=== PATIENT | male | born 1940 | race Caucasian/White ===

== ENCOUNTER 2024-10-19 10:21 | Inpatient (IN) ==
--- NOTE | 2024-10-19 10:48 | Emergency Department Note ---
Impression & Plan Delirium, Mastoiditis of both sides, Leukocytosis ED Provider Note CHIEF COMPLAINT: Altered mental status HISTORY OF PRESENT ILLNESS: This 84-year-old male patient past medical history of L1 compression fracture, dyslipidemia, constipation presents to the emergency department with complaints of decreased mental status and "unresponsive." Pt has been intermittently agitated and restless over the last wekk per his sister. He has been treated with oxy for back pain until ~5 days ago. residential staff told EMS he was noted to be obtunded when the tried to get him OOB today. No noted falls. REVIEW OF SYSTEMS: A review of systems was performed with positives and pertinent negatives listed in the history of present illness. 10 systems were reviewed and are otherwise negative. ALLERGIES: see below MEDICATIONS: see below PMH: see below SOCIAL HISTORY: see below DDx: infection, PNA, metabolic abnl, medication effect, dehydration, ICH, ICM, seizure among others. PHYSICAL EXAM: Vital signs reviewed. General: elderly 84 yo male, in no significant distress. HEENT: No scleral icterus, PERRLA, neck supple. MMM. on n/c O2 Cardiovascular: Regular rate and rhythm, no extra sounds. Pulmonary: Clear to auscultation bilaterally, normal work of breathing. Abdomen: Soft, nontender, nondistended, positive bowel sounds. Musculoskeletal: Atraumatic, no peripheral edema. Neurologic: Patient somnolent, difficult to arouse. blinks in response to threat, but minimally. nonverbal to painful stimuli, unable to follow commands. Skin: Warm, dry, no rash EMERGENCY DEPARTMENT COURSE/MDM: This pt was evaluated and appeared to be in no distress. IV access was obtained and lab work was drawn. Pt was placed on the machine fur cleaner and noted to be in a NSR. CXR reveals some congestive change and likely effusion L lung base. Pt had no significant response to IV narcan. Head CT is significant for possible mastoiditis. Lab work reveals a leukocytosis. Viral panel is negative. UA is sig only for blood. blood cx were ordered, IV cefepime and IV NSS were administered. Pt was discussed with IR for lumbar puncture. Hospitalist was consulted for admission and further management. MONITORING: An order for cardiac monitoring was placed and the patient is noted to be in a NSR at 75 beats per minute. RADIOLOGY: CXR to my interpretation reveals mild congestive changes with likely effusion at L lung base. Head Ct per rads: IMPRESSION: 1. No acute intracranial findings. 2. Findings consistent with bilateral mastoiditis. EKG: to my interpretation reveals a NSR at 77 bpm, RBBB with repolarization abnl, QTc 466. normal ST segments. no PVC, no PAC. DISPOSITION:Admit Past Med/Surg History Problem List (Updated 10/25/24 @ 09:40 by [place] Sánchez MD) Leukocytosis (Acute) Mastoiditis of both sides (Acute) Delirium (Acute) Palliative care by specialist Stenosis of right internal carotid artery COPD (chronic obstructive pulmonary disease) Glaucoma Dyslipidemia Social History Smoking Status: Former smoker Tobacco Type: Cigarettes Hx Alcohol Use: No Hx Substance Use: No Preferred Language: Chadian Communication Ability: Effective Alarm Installer Required: No Beliefs That Will Affect Care: U[place]din Current Living Situation: Residential Feels Safe at Home: Yes Assistive Devices: Oxygen - Continuous and Walker Allergies Allergies Allergy/AdvReac Type Severity Reaction Status Date / Time No Known Allergies Allergy Unverified 10/10/24 10:20 Home Meds Home Medications Medication Instructions Recorded Confirmed arformoterol 15 mcg/2 mL solution 2 ml inhalation BID 10/10/24 10/19/24 for nebulization aspirin 81 mg chewable tablet 81 mg PO QAM 10/10/24 10/19/24 bisacodyl 10 mg rectal suppository 10 mg KS DAILY PRN Constipation 10/10/24 10/19/24 (Dulcolax (bisacodyl)) cyanocobalamin (vitamin B-12) 1,000 mcg PO QAM 10/10/24 10/19/24 1,000 mcg tablet ipratropium 0.5 mg-albuterol 3 mg 3 ml inhalation Q2H PRN 10/10/24 10/19/24 (2.5 mg base)/3 mL nebulization SOB/Wheezing soln ondansetron 4 mg disintegrating 4 mg PO Q6H PRN Nausea And Vomiting 10/10/24 10/19/24 tablet polyethylene glycol 3350 17 gram 17 g PO QAM 10/10/24 10/19/24 oral powder packet (Miralax) revefenacin 175 mcg/3 mL solution 175 mcg inhalation QAM 10/10/24 10/19/24 for nebulization Milk of Magnesia 30 ml PO DAILY PRN Constipation 10/19/24 10/19/24 atorvastatin 80 mg tablet 80 mg PO HS 10/19/24 10/19/24 calcium carbonate 500 mg PO Q6H PRN GERD 10/19/24 10/19/24 cholecalciferol (vitamin D3) 50 50 mcg PO QAM 10/19/24 10/19/24 mcg (2,000 unit) tablet latanoprost 0.005 % eye drops 1 drp ophthalmic (eye) PM 10/19/24 10/19/24 saliva stimulant comb. no.3 1 spray mucous membrane Q2H PRN 10/19/24 10/19/24 (Biotene Moisturizing Mouth Dry Mouth mucosal spray) sodium phosphates 19 gram-7 118 ml KS DAILY PRN Constipation 10/19/24 10/19/24 gram/118 mL enema (Fleet Enema) tamsulosin 0.4 mg capsule 0.4 mg PO HS 10/19/24 10/19/24 Previous Rx's Medication Instructions Recorded acetaminophen 500 mg tablet 1,000 mg (2 x 500 mg) PO TID PRN 10/23/24 (Tylenol Extra Strength) pain #1 tab aripiprazole 2 mg tablet 2 mg PO QPM #1 tab 10/23/24 budesonide 0.5 mg/2 mL suspension 0.5 mg (2 mL) NEB BIDR #1 mL 10/23/24 for nebulization furosemide 40 mg tablet 20 mg (1/2 x 40 mg) PO DAILY #0 10/23/24 tabs lidocaine 5 % topical patch 1 patch transdermal HS #1 ea 10/23/24 potassium chloride 20 mEq 20 meq PO DAILY #0 tabs 10/23/24 tablet,extended release(part/cryst) sennosides 8.6 mg tablet (Senokot) 17.2 mg (2 x 8.6 mg) PO HS #1 tab 10/23/24 Results & Data (ED) Vital Signs Vital Signs - 24 hr 10/19/24 10:40 Pulse Rate 82 Home Medications Current Medication List: was personally reviewed by me Laboratory Data Attestation: I reviewed the patient's lab results. 10/21/24 07:49 10/21/24 07:49 Lab Results 10/19/24 10/19/24 10/19/24 Range/Units 10:48 11:38 13:25 WBC 11.71 H (4.8-10.8) K/ul RBC 4.60 L (4.70-6.10) M/uL Hgb 14.8 (14.0-18.0) g/dl Hct 46.5 (42.0-52.0) % MCV 101.1 H (80.0-100.0) fL MCH 32.2 (25.0-34.0) pg MCHC 31.8 L (32.0-36.0) g/dL RDW Std Deviation 51.5 H (36.4-46.3) fL RDW Coeff of Marcia 13.6 (11.5-14.5) % Plt Count 247 (130-400) K/uL MPV 10.3 (9.4-12.4) fL Immature Gran % (Auto) 0.3 % Neut % (Auto) 60.2 % Lymph % (Auto) 25.2 % [place] % (Auto) 10.2 % Eos % (Auto) 3.6 % Baso % (Auto) 0.5 % Neut # (Auto) 7.05 H (1.40-6.50) K/uL Lymph # (Auto) 2.95 (1.20-3.40) K/uL [place] # (Auto) 1.19 H (0.11-0.59) K/uL Eos # (Auto) 0.42 (0.00-0.50) K/uL Baso # (Auto) 0.06 (0.00-0.20) K/uL Immature Gran # (Auto) 0.04 (0.01-0.20) K/uL Sodium 141 (136-145) mmol/L Potassium 4.4 (3.5-5.1) mmol/L Chloride 104 (98-107) mmol/L Carbon Dioxide 33 H (21-32) mmol/L Anion Gap 4 (3-11) BUN 29 H (6-23) mg/dl Creatinine 1.21 (0.6-1.4) mg/dl Est Cr Clr Drug Dosing Not Reportable eGFR 58.31 BUN/Creatinine Ratio 24.0 H (10-20) Glucose 109 H (70-99(Fasting)) mg/dl Lactate 1.0 (0.4-2.0) mmol/L Calcium 9.7 (8.6-10.3) mg/dl Magnesium 2.3 (1.7-2.4) mg/dl Total Bilirubin 1.9 H (0.2-1.0) mg/dl AST 23 (13-39) U/L ALT 23 (7-52) U/L Alkaline Phosphatase 145 H (34-104) U/L Ammonia 11.0 L (18-72) umol/L Troponin I High Sens 9.2 (0-20) pg/ml Total Protein 6.9 (6.0-8.3) gm/dl Albumin 4.0 (3.4-5.0) gm/dl Globulin 2.9 (2.5-4.0) gm/dl Albumin/Globulin Ratio 1.4 (0.9-2) TSH 1.752 (0.300-4.500) uIu/ml Urine Color Yellow Urine Appearance Turbid A (Clear) Urine pH 5.5 (4.5-7.5) Ur Specific [place] 1.026 (1.000-1.030) Urine Protein Trace H (Negative) Urine Glucose (UA) Negative (Negative) Urine Ketones 1+ H (Negative) Urine Blood 3+ H (Negative) Urine Nitrite Negative (Negative) Urine Bilirubin Negative (Negative) Urine Urobilinogen Negative (Negative) Ur Leukocyte Esterase Negative (Negative) Urine WBC (Auto) 0-5 (0-5) /hpf Urine RBC (Auto) >20 H (0-2) /hpf U Hyaline Cast (Auto) 3-5 H (0-2) /lpf U Epithel Cells (Auto) 0-2 (0-2) /hpf Urine Bacteria (Auto) None Seen (None Seen) Uric Acid Crystals Present A (None Prsent) Urine Opiates Screen Neg (Neg) Ur Methadone, Qual Neg (Neg) Urine Fentanyl Screen Neg (Neg) Urine Barbiturates Neg (Neg) Ur Phencyclidine (PCP) Neg (Neg) U Amphetamin/Meth Scrn Neg (Neg) MDMA (Ecstasy) Screen Neg (Neg) U Benzodiazepines Scrn Neg (Neg) Ur Cocaine Metabolite Neg (Neg) U Marijuana (THC) Screen Neg (Neg) Adenovirus (PCR) Not Detected (NotDetected) B. pertussis DNA (PCR) Not Detected (NotDetected) B.parapertussis DNA PCR Not Detected (NotDetected) C. pneumoniae DNA (PCR) Not Detected (NotDetected) Coronavirus OC43 (PCR) Not Detected (NotDetected) Coronavirus HKU1 (PCR) Not Detected (NotDetected) Coronavirus 229E (PCR) Not Detected (NotDetected) SARS-CoV-2 (PCR) Not Detected (NotDetected) Coronavirus NL63 (PCR) Not Detected (NotDetected) Human Metapneumovir PCR Not Detected (NotDetected) Influenza Type A (PCR) Not Detected (NotDetected) Influenza Type B (PCR) Not Detected (NotDetected) M. pneumoniae (PCR) Not Detected (NotDetected) Parainfluenza 1 (PCR) Not Detected (NotDetected) Parainfluenza 2 (PCR) Not Detected (NotDetected) Parainfluenza 3 (PCR) Not Detected (NotDetected) Parainfluenza 4 (PCR) Not Detected (NotDetected) RSV (PCR) Not Detected (NotDetected) Entero/Rhino (PCR) Not Detected (NotDetected) Administered Medications Discontinued Medications Acetaminophen (Acetaminophen 325 Mg Tab) 650 mg PO Q4H PRN PRN Reason: Pain or Fever Stop: 11/18/24 17:06 Last Admin: 10/21/24 09:29 Dose: 650 mg Documented By: Admin: 10/20/24 21:17 Dose: 650 mg Documented By: Admin: 10/20/24 12:21 Dose: 650 mg Documented By: LUIS ANGEL Acetaminophen (Acetaminophen 500 Mg Tab) 1,000 mg PO TID PRN PRN Reason: Pain Stop: 11/20/24 20:59 Last Admin: 10/23/24 10:05 Dose: 1,000 mg Documented By: Admin: 10/22/24 21:38 Dose: 1,000 mg Documented By: Admin: 10/21/24 20:11 Dose: 1,000 mg Documented By: MPS Al Hydrox/Mg Hydrox/Simethicone (Aluminum/Magnesium Susp 30 Ml Udc) 15 ml PO Q4H PRN PRN Reason: Dyspepsia Stop: 11/18/24 17:06 Last Admin: 10/22/24 21:38 Dose: 15 ml Documented By: PAOLO Albuterol (Albut/Ipratrop 3mg/0.5mg Neb 3 Ml Vial) 3 ml INH Q2H PRN; Protocol PRN Reason: SOB/Wheezing Stop: 11/18/24 22:04 Last Admin: 10/20/24 15:42 Dose: 3 ml Documented By: [id number] Aripiprazole (Aripiprazole 2 Mg Tab) 2 mg PO QPM [facility] Stop: 11/21/24 20:59 Last Admin: 10/22/24 22:46 Dose: 2 mg Documented By: PAOLO Aspirin (Aspirin 300 Mg Supp) 300 mg KS ONE ONE Stop: 10/19/24 19:04 Last Admin: 10/19/24 20:54 Dose: Not Given Documented By: KATELIN Aspirin (Aspirin 81 Mg Ectab) 81 mg PO QAM [facility] Stop: 11/19/24 08:59 Last Admin: 10/23/24 10:05 Dose: 81 mg Documented By: Admin: 10/22/24 08:09 Dose: 81 mg Documented By: Admin: 10/21/24 09:21 Dose: 81 mg Documented By: Admin: 10/20/24 08:29 Dose: 81 mg Documented By: LUIS ANGEL Atorvastatin Calcium (Atorvastatin 40 Mg Tab) 80 mg PO HS [facility] Stop: 11/19/24 20:59 Last Admin: 10/22/24 21:39 Dose: 80 mg Documented By: Admin: 10/21/24 20:11 Dose: 80 mg Documented By: Admin: 10/20/24 21:17 Dose: 80 mg Documented By: KATELIN Budesonide (Budesonide 0.5 Mg/2 Ml Vial (Pulmicort)) 0.5 mg NEB BIDR [facility] Stop: 11/19/24 18:59 Last Admin: 10/23/24 07:41 Dose: 0.5 mg Documented By: [id number] Admin: 10/22/24 19:07 Dose: 0.5 mg Documented By: Admin: 10/22/24 07:07 Dose: 0.5 mg Documented By: Admin: 10/21/24 20:20 Dose: 0.5 mg Documented By: Admin: 10/21/24 07:19 Dose: 0.5 mg Documented By: Admin: 10/20/24 19:42 Dose: 0.5 mg Documented By: MARIAH Famotidine (Famotidine 40 Mg Tablet) 40 mg PO NOW ONE Stop: 10/22/24 22:15 Last Admin: 10/22/24 22:46 Dose: 40 mg Documented By: PAOLO Formoterol Fumarate (Formoterol 20 Mcg/2 Ml Vial) 20 mcg INH BIDR [facility] Stop: 11/19/24 06:59 Last Admin: 10/23/24 07:41 Dose: 20 mcg Documented By: [id number] Admin: 10/22/24 19:07 Dose: 20 mcg Documented By: Admin: 10/22/24 07:07 Dose: 20 mcg Documented By: Admin: 10/21/24 20:20 Dose: 20 mcg Documented By: Admin: 10/21/24 07:20 Dose: 20 mcg Documented By: Admin: 10/20/24 19:43 Dose: 20 mcg Documented By: Admin: 10/20/24 07:50 Dose: 20 mcg Documented By: [id number] Gadobutrol (Gadobutrol 65ml Vial) 10.5 ml IV ONCE ONE Stop: 10/19/24 18:51 Last Admin: 10/19/24 18:51 Dose: 10.5 ml Documented By: RUBA Heparin Sodium (Porcine) (Heparin Sod 5,000 Unit/0.5 Ml Vial) 5,000 units SQ Q8 [facility] Stop: 11/18/24 21:59 Last Admin: 10/23/24 05:44 Dose: Not Given Documented By: Admin: 10/22/24 21:39 Dose: 5,000 units Documented By: Admin: 10/22/24 14:38 Dose: 5,000 units Documented By: Admin: 10/22/24 06:07 Dose: 5,000 units Documented By: Admin: 10/21/24 20:12 Dose: 5,000 units Documented By: Admin: 10/21/24 14:35 Dose: 5,000 units Documented By: Admin: 10/21/24 06:19 Dose: 5,000 units Documented By: Admin: 10/20/24 21:17 Dose: 5,000 units Documented By: Admin: 10/20/24 14:30 Dose: 5,000 units Documented By: LUIS ANGEL Admin: 10/20/24 06:07 Dose: 5,000 units Documented By: Admin: 10/19/24 22:34 Dose: 5,000 units Documented By: KATELIN Sodium Chloride (Nss) 1,000 mls @ 125 mls/hr IV .Q8H [facility] Stop: 10/20/24 10:44 Last Infusion: 10/20/24 11:12 Dose: Infused Documented By: LUIS ANGEL Admin: 10/20/24 04:08 Dose: 125 mls/hr Documented By: Infusion: 10/20/24 01:28 Dose: Infused Documented By: [facility] Admin: 10/19/24 17:28 Dose: 125 mls/hr Documented By: Infusion: 10/19/24 16:01 Dose: Infused Documented By: Admin: 10/19/24 10:55 Dose: 125 mls/hr Documented By: LEONA Ceftriaxone Sodium (Rocephin) 2,000 mg in 50 mls @ 100 mls/hr IV NOW STA Stop: 10/19/24 13:50 Last Infusion: 10/19/24 16:02 Dose: Infused Documented By: Admin: 10/19/24 15:20 Dose: 100 mls/hr Documented By: ROSANA Ceftriaxone Sodium (Rocephin) 2,000 mg in 50 mls @ 100 mls/hr IV Q24H [facility] Stop: 10/22/24 14:59 Last Infusion: 10/21/24 16:10 Dose: Infused Documented By: Admin: 10/21/24 14:35 Dose: 100 mls/hr Documented By: Infusion: 10/20/24 15:50 Dose: Infused Documented By: Admin: 10/20/24 14:33 Dose: 100 mls/hr Documented By: LUIS ANGEL Ioversol (Optiray 320 125ml) 118 ml IV ONCE ONE Stop: 10/19/24 18:00 Last Admin: 10/19/24 18:00 Dose: 118 ml Documented By: CONNIE Latanoprost (Latanoprost 0.005% Op Soln 2.5 Ml Btl) 1 drops OPR QPM [facility] Stop: 11/18/24 20:59 Last Admin: 10/22/24 22:46 Dose: 1 drops Documented By: Admin: 10/21/24 20:12 Dose: 1 drops Documented By: Admin: 10/20/24 21:17 Dose: 1 drops Documented By: Admin: 10/19/24 22:34 Dose: 1 drops Documented By: KATELIN Lidocaine (Lidocaine 5% 1 Patch) 1 patch TD HS [facility] Stop: 11/20/24 20:59 Last Admin: 10/22/24 21:39 Dose: 1 patch Documented By: Admin: 10/21/24 20:12 Dose: 1 patch Documented By: ISABELLA Magnesium Hydroxide (Magnesium Hydroxide Susp 30 Ml Udc) 30 ml PO NOW ONE Stop: 10/23/24 08:39 Last Admin: 10/23/24 10:02 Dose: Not Given Documented By: VINOD Miscellaneous (Order Awaiting Action: Revefenacin 175 Mcg/3 Ml Solution For Nebulization) 1 each N/A QS [facility] Stop: 11/19/24 00:00 Last Admin: 10/23/24 07:30 Dose: Not Given Documented By: Admin: 10/22/24 22:58 Dose: Not Given Documented By: Admin: 10/22/24 21:37 Dose: Not Given Documented By: Admin: 10/22/24 08:10 Dose: Not Given Documented By: Admin: 10/21/24 23:52 Dose: Not Given Documented By: Admin: 10/21/24 16:10 Dose: Not Given Documented By: Admin: 10/21/24 09:21 Dose: Not Given Documented By: Admin: 10/21/24 00:03 Dose: Not Given Documented By: Admin: 10/20/24 15:50 Dose: Not Given Documented By: Admin: 10/20/24 09:13 Dose: Not Given Documented By: [facility] Admin: 10/19/24 23:16 Dose: Not Given Documented By: LM Miscellaneous (Remove Lidoderm Patch) 1 each N/A DAILY@0900 [facility] Stop: 11/21/24 08:59 Last Admin: 10/23/24 10:05 Dose: 1 each Documented By: Admin: 10/22/24 08:10 Dose: 1 each Documented By: BEATRIZ Naloxone HCl (Naloxone Hcl 0.4 Mg/1 Ml Vial/Carp) 0.4 mg IV NOW STA Stop: 10/19/24 10:41 Last Admin: 10/19/24 10:55 Dose: 0.4 mg Documented By: LEONA Pantoprazole Sodium (Pantoprazole 40 Mg Tab) 40 mg PO QAM [facility] Stop: 11/22/24 08:59 Last Admin: 10/23/24 10:05 Dose: 40 mg Documented By: VINOD Polyethylene Glycol (Polyethylene (Miralax) 17 Gm Pack) 17 gm PO DAILY [facility] Stop: 11/22/24 08:59 Last Admin: 10/23/24 09:51 Dose: Not Given Documented By: VINOD Quetiapine Fumarate (Quetiapine Fumarate 25 Mg Tablet) 12.5 mg PO ONCE ONE Stop: 10/21/24 18:45 Last Admin: 10/21/24 19:04 Dose: Not Given Documented By: PADMINI Sennosides (Senna 8.6 Mg Tab) 17.2 mg PO BID [facility] Stop: 11/22/24 08:59 Last Admin: 10/23/24 10:05 Dose: 17.2 mg Documented By: VINOD Discharge Plan Visit Data Chief Complaint: Unresponsive ED Provider: [place] Sánchez Discharge Problem: Delirium, Mastoiditis of both sides, Leukocytosis Patient Disposition: Admitted As Inpatient Condition: Fair Discharge Instructions Interventions: ED Discharge Assessment Last Done: 10/19/24 15:58 Discharge Problem: Leukocytosis Qualifiers: Leukocytosis type: unspecified Qualified Code(s): D72.829 - Elevated white blood cell count, unspecified
[2024-10-19] MEDS: SODIUM CHLORIDE 0.9% 1,000 ML IV SCH (10:55)
[2024-10-19] MEDS: NALOXONE HCL 0.4 MG/1 ML VIAL/CARP IV STA (10:55)
[2024-10-19 11:07] LABS: Basophils # (auto) 0.06 K/uL (0.00-0.20); Basophils % (auto) 0.5 %; Eosinophils # (auto) 0.42 K/uL (0.00-0.50); Eosinophils % (auto) 3.6 %; Hematocrit (blood only) 46.5 % (42.0-52.0); Hemoglobin 14.8 g/dl (14.0-18.0); Immature Granulocytes # (auto) 0.04 K/uL (0.01-0.20); Immature Granulocytes % (auto) 0.3 %; Lymphocytes # (auto) 2.95 K/uL (1.20-3.40); Lymphocytes % (auto) 25.2 %; Mean Corpuscular Hemoglobin 32.2 pg (25.0-34.0); Mean Corpuscular Hgb Conc 31.8 g/dL (32.0-36.0); Mean Corpuscular Volume 101.1 fL (80.0-100.0); Mean Platelet Volume 10.3 fL (9.4-12.4); Monocytes # (auto) 1.19 K/uL (0.11-0.59); Monocytes % (auto) 10.2 %; Neutrophils # (auto) 7.05 K/uL (1.40-6.50); Neutrophils % (auto) 60.2 %; Platelet Count 247 K/uL (130-400); RDW Coefficient of Variation 13.6 % (11.5-14.5); RDW Standard Deviation 51.5 fL (36.4-46.3); White Blood Count 11.71 K/ul (4.8-10.8)
--- NOTE | 2024-10-19 11:13 | XRay Report ---
XR chest 1V portable CLINICAL HISTORY: weakness COMPARISON STUDY: None FINDINGS: There is moderate cardiomegaly with mild pulmonary vascular congestion. There is opacity at the left base with partial obscuration of the left hemidiaphragm. No pneumothorax. IMPRESSION: 1. Mild CHF. 2. Left lung base opacity could represent atelectasis, early pneumonia, or small left pleural effusio n. ACT 112: Negative or not required by law. Electronically signed by: Piyush Kessler M.D. 10/19/2024 11:12 AM
--- NOTE | 2024-10-19 11:41 | CT Scan Report ---
CT head/brain wo con CLINICAL HISTORY: AMS. TECHNIQUE: Multiple axial CT images of the head were obtained without contrast. A dose lowering tech nique was utilized adhering to the principles of ALARA. CT DOSE: 1796.57 mGy.cm COMPARISON: None FINDINGS: There is motion artifact despite multiple acquisitions. No intracranial hemorrhage seen. No mass effect, midline shift, or hydrocephalus. No skull fracture seen. Visualized paranasal sinuses a re clear. There is complete opacification of the mastoid air cells bilaterally IMPRESSION: 1. No acute intracranial findings. 2. Findings consistent with bilateral mastoiditis. ACT 112: Negative or not required by law. The above report was generated using voice recognition software. It may contain grammatical, syntax o r spelling errors. Electronically signed by: Piyush Kessler M.D. 10/19/2024 11:40 AM
[2024-10-19 11:42] LABS: Alanine Aminotransferase 23 U/L (7-52); Albumin Globulin Ratio 1.4 (0.9-2); Alkaline Phosphatase 145 U/L (34-104); Anion Gap 4 (3-11); Aspartate Aminotransferase 23 U/L (13-39); Bilirubin,Total 1.9 mg/dl (0.2-1.0); Blood Urea Nitrogen 29 mg/dl (6-23); Calcium 9.7 mg/dl (8.6-10.3); Carbon Dioxide 33 mmol/L (21-32); Chloride 104 mmol/L (98-107); Globulin 2.9 gm/dl (2.5-4.0); Glucose 109 mg/dl (70-99(Fasting)); Magnesium 2.3 mg/dl (1.7-2.4); Potassium 4.4 mmol/L (3.5-5.1); Sodium 141 mmol/L (136-145); Total Protein 6.9 gm/dl (6.0-8.3)
[2024-10-19 11:48] LABS: Troponin I High Sensitivity 9.2 pg/ml (0-20)
[2024-10-19 11:58] LABS: Thyroid Stimulating Hormone 1.752 uIu/ml (0.300-4.500)
[2024-10-19 12:29] LABS: Appearance Urine Turbid (Clear); Bacteria Urine Automated None Seen (None Seen); Bilirubin Urine Negative (Negative); Blood Urine 3+ (Negative); Color Urine Yellow; Epithelial Cell Urine Auto 0-2 /hpf (0-2); Glucose Urine UA Negative (Negative); Ketones Urine 1+ (Negative); Leukocyte Esterase Urine Negative (Negative); Nitrite Urine Negative (Negative); Protein Urine Trace (Negative); RBC Urine Automated >20 /hpf (0-2); Specific Gravity Urine 1.026 (1.000-1.030); Urobilinogen Urine Negative (Negative); WBC Urine Automated 0-5 /hpf (0-5); pH Urine 5.5 (4.5-7.5)
[2024-10-19 12:42] LABS: Adenovirus PCR Not Detected (NotDetected); Bordetella parapertussis PCR Not Detected (NotDetected); Bordetella pertussis PCR Not Detected (NotDetected); Chlamydia pneumoniae PCR Not Detected (NotDetected); Coronavirus 229E PCR Not Detected (NotDetected); Coronavirus CoV-2 (COVID19)PCR Not Detected (NotDetected); Coronavirus HKU1 PCR Not Detected (NotDetected); Coronavirus NL63 PCR Not Detected (NotDetected); Coronavirus OC43PCR Not Detected (NotDetected); Human Metapneumovirus PCR Not Detected (NotDetected); Influenza A PCR Not Detected (NotDetected); Influenza B PCR Not Detected (NotDetected); Mycoplasma pneumoniae PCR Not Detected (NotDetected); Parainfluenza Virus 1 PCR Not Detected (NotDetected); Parainfluenza Virus 2 PCR Not Detected (NotDetected); Parainfluenza Virus 3 PCR Not Detected (NotDetected); Parainfluenza Virus 4 PCR Not Detected (NotDetected); Respiratory Syncytial VirusPCR Not Detected (NotDetected); Rhinovirus/Enterovirus PCR Not Detected (NotDetected)
[2024-10-19 12:52] LABS: Uric Acid Crystals Urine Present (None Prsent)
[2024-10-19 12:56] LABS: Amphetamines+Metham, Urine Neg (Neg); Barbiturates, Urine Neg (Neg); Benzodiazepine, Urine Neg (Neg); Cocaine, Urine Neg (Neg); Fentanyl, Urine Neg (Neg); MDMA (Ecstacy), Urine Neg (Neg); Marijuana, Urine Neg (Neg); Methadone, Urine Neg (Neg); Opiate, Urine Neg (Neg); Phencyclidine, Urine Neg (Neg)
--- NOTE | 2024-10-19 14:30 | History & Physical Report ---
Date of Service October 19, 2024 Assessment & Plan (1) Compression fracture of L1 vertebra: (2) Dyslipidemia: (3) Cyst of left kidney: (4) Constipation: (5) COPD (chronic obstructive pulmonary disease): Plan Mr. 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 ADDENDUM: 2129 - Updated patient and family at bedside. Patient is alert but confused. Is able to answer questions but easily gets distracted and will tell a couple stories repetitively. Mostly fixates on what he can do independently vs needing assistance and ringing his donnelly at [facility]. Of note, he has poor/limited vision in L eye at baseline so talking on his R side helps. He was able to recall having urinary retention issues and has a germain but doesn't remember it being placed. Currently looks comfortable from a back pain perspective currently. Family states he eats a regular diet. MRI did not reveal a stroke. Patient and family report he drink a lot of water at baseline. Will allow a diet and oral fluids. Will add home meds. Will need to hold them again if mentation changes. #Toxic vs Metabolic Encephalopathy: -Med induced vs infectious vs other -He will open his L eye to verbal cues and will shake head yes/no intermittently to questions but uncertain comprehension. Mostly responds to pain response. Was able to tell the floor nurse his sisters name on admission. It was noted he was on Oxy and was having hallucinations but this was stopped 12 October. He was on a drug holiday to try to see if this resolved the delirium. As noted, he was confused but improving on Saturday but noted increased agitation on Saturday -He does have a mild leukocytosis but no documented fever; procal is negative; Lumbar with mild elevated glucose/protein - no PCR labs detected-gram stain no WBC no organisms - culture pending; BCx pending -ABG largely unremarkable - does have COPD with chronic failure on 2 L but so far pulse ox has been good -He is dry on examination - continue NSS at 125 mL from ER and will determine dosage rate adjustment if needed - does take Lasix which will be held but uncertain of CHF history; will monitor fluid status -Head CT without acute findings; bilateral mastoiditis but uncertain of chronicity -MRI read pending - CTA head/neck with 80-90% stenosis of RAKESH - possible stroke as cause of mentation change? Last known well is difficult to fully guage but mentation has been off for days and would be outside window for tPA - if CVA is noted can then place neuro consult --Consult vascular given stenosis in RAKESH - will use rectal ASA while mentation is off -Continue Rocephin 2g IV for now - empirical coverage; UA not too convincing -NPO until mentation improves; hold home oral meds until mentation improves #L1 Compression Fracture: -Will await improvement in mentation - could benefit from brace; was to F/U with ortho spine as outpatient -Hold on pain medications until mentation improves #COPD with Chronic Resp Failure on 2 L: -[facility] did note hypoxia this AM while unresponsive - has had good saturations while while in ED -If med list is correct he takes scheduled nebs and PRN nebs? Does no appear to be in an exacerbation at this time - will await improvement in mentation and can get equivalent inhalers/nebs on board if needed #Constipation: -Can address when mentation improves #L Complex Cyst: -Incidental finding in ER a couple weeks ago. Was instructed to follow-up with Urology as outpatient #Urinary Retention: -New this week - Germain was placed at [facility] -Hold Tamsulosin for now DVT Prophylaxis: Heparin SC Code Status: DNR Disposition: Await improvement in mentation. From [facility] History of Present Illness Chief Complaint: Unresponsive/AMS Primary Care Provider: [facility] Mr. 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 HPI is limited due to patient mentation and no records available for my review beyond EMS notes and ER provider sign out. Did speak with Nicole PERSON that assisted with the past few days of events. Patient was seen in the ED on 09 October for back pain that improved with enemas as he does have a history of constipation. Incidental finding of renal cyst and Urology did not feel it was an active bleed. Sister reports history of renal cancer requiring surgery in the past. He was seen on 10 October for R upper thigh pain. He was found at that time to have the L1 compression fracture. It appears he was taking Oxy but this was D/Cd on the due to hallucinations and altered mentation. A drug holiday was attempted and staff noted his was confused but a bit better on Saturday. At baseline he is alert and oriented x 3 and ambulatory without focal deficits. On Saturday he was agitated and throwing things. No medication was given that could have increased confusion or agitation. There was question of possible Seroquel but this was an old medication that has been D/Cd since April 2024. Naloxone was given in ED with no change in mentation. Patient is very dry on examination. He did develop urinary retention this past week and Germain was placed. He will open his L eye to verbal cues and was shaking his head yes/no to some questions but cannot truly gauge if he was comprehending. Allergies Allergy/AdvReac Type Severity Reaction Status Date / Time No Known Allergies Allergy Unverified 10/10/24 10:20 Home Medications Medication Instructions Recorded Confirmed Type acetaminophen 325 mg tablet 650 mg PO Q8H PRN Pain/fever 10/10/24 10/19/24 History (Tylenol) arformoterol 15 mcg/2 mL solution 2 ml inhalation BID 10/10/24 10/19/24 History for nebulization aspirin 81 mg chewable tablet 81 mg PO QAM 10/10/24 10/19/24 History bisacodyl 10 mg rectal suppository 10 mg NH DAILY PRN Constipation 10/10/24 History (Dulcolax (bisacodyl)) cyanocobalamin (vitamin B-12) 1,000 mcg PO QAM 10/10/24 10/19/24 History 1,000 mcg tablet ipratropium 0.5 mg-albuterol 3 mg 3 ml inhalation Q2H PRN 10/10/24 10/19/24 History (2.5 mg base)/3 mL nebulization SOB/Wheezing soln ondansetron 4 mg disintegrating 4 mg PO Q6H PRN Nausea And Vomiting 10/10/24 10/19/24 History tablet polyethylene glycol 3350 17 gram 17 g PO QAM 10/10/24 10/19/24 History oral powder packet (Miralax) potassium chloride 20 mEq 20 meq PO BID 10/10/24 10/19/24 History tablet,extended release(part/cryst) revefenacin 175 mcg/3 mL solution 175 mcg inhalation QAM 10/10/24 10/19/24 History for nebulization Milk of Magnesia 30 ml PO DAILY PRN Constipation 10/19/24 10/19/24 History atorvastatin 80 mg tablet 80 mg PO HS 10/19/24 10/19/24 History calcium carbonate 500 mg PO Q6H PRN GERD 10/19/24 10/19/24 History cholecalciferol (vitamin D3) 50 50 mcg PO QAM 10/19/24 10/19/24 History mcg (2,000 unit) tablet furosemide 40 mg tablet 40 mg PO DAILY 10/19/24 10/19/24 History latanoprost 0.005 % eye drops 1 drp ophthalmic (eye) PM 10/19/24 10/19/24 History saliva stimulant comb. no.3 1 spray mucous membrane Q2H PRN 10/19/24 10/19/24 History (Biotene Moisturizing Mouth Dry Mouth mucosal spray) sodium phosphates 19 gram-7 118 ml NH DAILY PRN Constipation 10/19/24 10/19/24 History gram/118 mL enema (Fleet Enema) tamsulosin 0.4 mg capsule 0.4 mg PO HS 10/19/24 10/19/24 History Past Med/Surg History Problem List (Updated 10/19/24 @ 16:26 by Jeannine Newman PA-C) COPD (chronic obstructive pulmonary disease) Lumbar radiculopathy (Acute) Compression fracture of L1 vertebra (Acute) Glaucoma Dyslipidemia Back pain (Acute) Cyst of left kidney (Acute) Constipation (Acute) Social History Smoking Status: Former smoker Tobacco Type: Cigarettes Hx Alcohol Use: No Hx Substance Use: No Preferred Language: [place] Communication Ability: Effective 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 Uncertain if he comprehended questions asked. Physical Exam Physical Exam: PHYSICAL EXAM General Appearance: Elderly male in NAD; Altered HEENT: Head is normocephalic/atraumatic; Mucous membranes dry Neck: Supple; Trachea midline Heart: RRR Lungs: CTA in all lung stoner bilaterally but diminished at bases but exam was limited; Respirations unlabored; Neg accessory muscle use Abdomen: Soft, non-tender, non-distended; Positive BS x 4 quadrants Extremities: Neg cyanosis or edema Neurological: Altered; unable to follow commands Psychiatric: Altered Results & Data Results & Data Vital Signs (Past 12 Hours) Vital Signs Temp Pulse Pulse Resp BP BP Pulse Ox 10/19/24 12:56 75 16 137/66 99 10/19/24 11:09 75 15 134/64 95 10/19/24 10:40 82 10/19/24 10:23 88 L 10/19/24 10:20 36.4 C L 77 20 138/65 94 O2 Del Method O2 Flow Rate 10/19/24 12:56 Oxymask 2 10/19/24 11:09 Oxymask 2 10/19/24 10:40 10/19/24 10:23 Nasal Cannula, Oxymask 2 10/19/24 10:20 Room Air Laboratory Results Laboratory Results - last 24 hr 10/19/24 10/19/24 10/19/24 10:48 11:38 13:25 WBC 11.71 H RBC 4.60 L Hgb 14.8 Hct 46.5 MCV 101.1 H MCH 32.2 MCHC 31.8 L RDW Std Deviation 51.5 H RDW Coeff of Marcia 13.6 Plt Count 247 MPV 10.3 Immature Gran % (Auto) 0.3 Neut % (Auto) 60.2 Lymph % (Auto) 25.2 [place] % (Auto) 10.2 Eos % (Auto) 3.6 Baso % (Auto) 0.5 Neut # (Auto) 7.05 H Lymph # (Auto) 2.95 [place] # (Auto) 1.19 H Eos # (Auto) 0.42 Baso # (Auto) 0.06 Immature Gran # (Auto) 0.04 Sodium 141 Potassium 4.4 Chloride 104 Carbon Dioxide 33 H Anion Gap 4 BUN 29 H Creatinine 1.21 Est Cr Clr Drug Dosing Not Reportable eGFR 58.31 BUN/Creatinine Ratio 24.0 H Glucose 109 H Lactate 1.0 Calcium 9.7 Magnesium 2.3 Total Bilirubin 1.9 H AST 23 ALT 23 Alkaline Phosphatase 145 H Ammonia 11.0 L Troponin I High Sens 9.2 Total Protein 6.9 Albumin 4.0 Globulin 2.9 Albumin/Globulin Ratio 1.4 Procalcitonin TSH 1.752 Urine Color Yellow Urine Appearance Turbid A Urine pH 5.5 Ur Specific [place] 1.026 Urine Protein Trace H Urine Glucose (UA) Negative Urine Ketones 1+ H Urine Blood 3+ H Urine Nitrite Negative Urine Bilirubin Negative Urine Urobilinogen Negative Ur Leukocyte Esterase Negative Urine WBC (Auto) 0-5 Urine RBC (Auto) >20 H U Hyaline Cast (Auto) 3-5 H U Epithel Cells (Auto) 0-2 Urine Bacteria (Auto) None Seen Uric Acid Crystals Present A Fluid Comment CSF Appearance CSF Color Xanthrochromic CSF WBC CSF RBC CSF Cell Count Tube # CSF Chemistry Tube # CSF Glucose CSF Total Protein CSF C.neoform/gat PCR CSF CMV DNA (PCR) CSF Enterovirus (PCR) CSF E. coli K1 (PCR) CSF H. influenzae (PCR) CSF HSV I (PCR) CSF HSV II (PCR) CSF HHV 6 (PCR) CSF L.monocytogenes PCR CSF N. meningitidis PCR CSF Parechovirus (PCR) CSF S. agalactiae (PCR) CSF S. pneumoniae (PCR) CSF VZV DNA (PCR) Urine Opiates Screen Neg Ur Methadone, Qual Neg Urine Fentanyl Screen Neg Urine Barbiturates Neg Ur Phencyclidine (PCP) Neg U Amphetamin/Meth Scrn Neg MDMA (Ecstasy) Screen Neg U Benzodiazepines Scrn Neg Ur Cocaine Metabolite Neg U Marijuana (THC) Screen Neg Adenovirus (PCR) Not Detected B. pertussis DNA (PCR) Not Detected B.parapertussis DNA PCR Not Detected C. pneumoniae DNA (PCR) Not Detected Coronavirus OC43 (PCR) Not Detected Coronavirus HKU1 (PCR) Not Detected Coronavirus 229E (PCR) Not Detected SARS-CoV-2 (PCR) Not Detected Coronavirus NL63 (PCR) Not Detected Human Metapneumovir PCR Not Detected Influenza Type A (PCR) Not Detected Influenza Type B (PCR) Not Detected M. pneumoniae (PCR) Not Detected Parainfluenza 1 (PCR) Not Detected Parainfluenza 2 (PCR) Not Detected Parainfluenza 3 (PCR) Not Detected Parainfluenza 4 (PCR) Not Detected RSV (PCR) Not Detected Entero/Rhino (PCR) Not Detected 10/19/24 10/19/24 14:43 15:07 WBC RBC Hgb Hct MCV MCH MCHC RDW Std Deviation RDW Coeff of Marcia Plt Count MPV Immature Gran % (Auto) Neut % (Auto) Lymph % (Auto) [place] % (Auto) Eos % (Auto) Baso % (Auto) Neut # (Auto) Lymph # (Auto) [place] # (Auto) Eos # (Auto) Baso # (Auto) Immature Gran # (Auto) Sodium Potassium Chloride Carbon Dioxide Anion Gap BUN Creatinine Est Cr Clr Drug Dosing eGFR BUN/Creatinine Ratio Glucose Lactate Calcium Magnesium Total Bilirubin AST ALT Alkaline Phosphatase Ammonia Troponin I High Sens Total Protein Albumin Globulin Albumin/Globulin Ratio Procalcitonin 0.06 TSH Urine Color Urine Appearance Urine pH Ur Specific [place] Urine Protein Urine Glucose (UA) Urine Ketones Urine Blood Urine Nitrite Urine Bilirubin Urine Urobilinogen Ur Leukocyte Esterase Urine WBC (Auto) Urine RBC (Auto) U Hyaline Cast (Auto) U Epithel Cells (Auto) Urine Bacteria (Auto) Uric Acid Crystals Fluid Comment CSF Appearance Clear CSF Color Colorless Xanthrochromic No xanthochromia CSF WBC 3 CSF RBC 1 CSF Cell Count Tube # 3 CSF Chemistry Tube # 1 CSF Glucose 76 H CSF Total Protein 48.9 H CSF C.neoform/gat PCR Not Detected CSF CMV DNA (PCR) Not Detected CSF Enterovirus (PCR) Not Detected CSF E. coli K1 (PCR) Not Detected CSF H. influenzae (PCR) Not Detected CSF HSV I (PCR) Not Detected CSF HSV II (PCR) Not Detected CSF HHV 6 (PCR) Not Detected CSF L.monocytogenes PCR Not Detected CSF N. meningitidis PCR Not Detected CSF Parechovirus (PCR) Not Detected CSF S. agalactiae (PCR) Not Detected CSF S. pneumoniae (PCR) Not Detected CSF VZV DNA (PCR) Not Detected Urine Opiates Screen Ur Methadone, Qual Urine Fentanyl Screen Urine Barbiturates Ur Phencyclidine (PCP) U Amphetamin/Meth Scrn MDMA (Ecstasy) Screen U Benzodiazepines Scrn Ur Cocaine Metabolite U Marijuana (THC) Screen Adenovirus (PCR) B. pertussis DNA (PCR) B.parapertussis DNA PCR C. pneumoniae DNA (PCR) Coronavirus OC43 (PCR) Coronavirus HKU1 (PCR) Coronavirus 229E (PCR) SARS-CoV-2 (PCR) Coronavirus NL63 (PCR) Human Metapneumovir PCR Influenza Type A (PCR) Influenza Type B (PCR) M. pneumoniae (PCR) Parainfluenza 1 (PCR) Parainfluenza 2 (PCR) Parainfluenza 3 (PCR) Parainfluenza 4 (PCR) RSV (PCR) Entero/Rhino (PCR) Diagnostic Findings Chest X-Ray 10/19/24 10:32 XR chest 1V portable CLINICAL HISTORY: weakness COMPARISON STUDY: None FINDINGS: There is moderate cardiomegaly with mild pulmonary vascular congestion. There is opacity at the left base with partial obscuration of the left hemidiaphragm. No pneumothorax. IMPRESSION: 1. Mild CHF. 2. Left lung base opacity could represent atelectasis, early pneumonia, or small left pleural effusion. ACT 112: Negative or not required by law. Electronically signed by: Piyush Kessler M.D. 10/19/2024 11:[address] 10/19/24 10:32 CT head/brain wo con CLINICAL HISTORY: AMS. TECHNIQUE: Multiple axial CT images of the head were obtained without contrast. A dose lowering technique was utilized adhering to the principles of ALARA. CT DOSE: 1796.57 mGy.cm COMPARISON: None FINDINGS: There is motion artifact despite multiple acquisitions. No intracranial hemorrhage seen. No mass effect, midline shift, or hydrocephalus. No skull fracture seen. Visualized paranasal sinuses are clear. There is complete opacification of the mastoid air cells bilaterally IMPRESSION: 1. No acute intracranial findings. 2. Findings consistent with bilateral mastoiditis. ACT 112: Negative or not required by law. The above report was generated using voice recognition software. It may contain grammatical, syntax or spelling errors. Electronically signed by: Piyush Kessler M.D. 10/19/2024 11:40 AM Lumbar Puncture 10/19/24 13:32 LUMBAR PUNCTURE UNDER FLUOROSCOPY CLINICAL HISTORY: Altered mental status; mastoiditis PROCEDURE: Procedure and risks were explained. Informed consent was obtained over the phone from the power of ip attorney. A final timeout was completed. The patient was placed prone on the fluoroscopic exam table. The lower lumbar region was prepped and draped in sterile fashion. 1% lidocaine was utilized for skin anesthesia. Utilizing fluoroscopic guidance, a 22-gauge spinal needle was advanced into the intrathecal space at the L2-3 disc space level. Fluoroscopic spot images were obtained. Approximately 3 mL of clear CSF fluid was removed and sent to lab for analysis. The needle was readjusted to try to remove more CSF, but was unsuccessful and subsequently removed. The patient tolerated the procedure well. Vital signs will be monitored postprocedure. Fluoroscopy time 14 seconds. Study dosed 32.15 mGy. IMPRESSION: Small-volume lumbar puncture as above. The referring emergency department physician was notified. Performed, dictated, and signed by Bebeto Martinez PA-C; to be co-signed by Dr. Piyush Kessler. Electronically signed by: Piyush Kessler M.D. 10/19/2024 4:10 PM Code Status & VTE Plan Code Status Full Code - needs verified as this was not listed on EMS sheet I had available VTE Prophylaxis Plan VTE Prophylaxis will be ordered: Yes Supervising Physician Co-Signing Physician Notes Patient seen and examined, chart reviewed, case discussed with Jeannine Newman PA-C and I agree with the assessment and plan as above except as otherwise noted Labs and images reviewed 84-year-old male brought in for evaluation of altered mental status/s edation/confusion. SPECT with toxic metabolic encephalopathy from medications however DDx does include metabolic with infected appearing UA and leukocytosis. He underwent small-volume diagnostic lumbar tap; CSF did not have an elevated white blood cell count and was clear. Extended PCR/analysis pending. Patient has been treated empirically with Rocephin for UTI and naloxone. MRI is pending. Exam is limited by engagement in mentation. On reassessment opens eyes and is attempting to speak but does not give meaningful answers to questions at time of visit. Still is very confused and minimal engagement with exam however does glove cleaner with the right hand when cued, no strength is appreciated on cueing in the left upper extremity. Limited history available at time of assessment however no prior history of CVA as documented. Symptoms have been present for over 48 hours. CTAhead and neck pending, MRI ordered. Rectal aspirin ordered. Will continue to follow agree with above PG Care Time/CCT Total # of Minutes Spent Total Time Spent with Patient: Total time spent is greater than 50% in coordination of care (as documented) at patient's floor/unit and/or counseling patient: Coding Level of Care Code 73319 INT INP/OBS CARE MIN Diagnoses Compression fracture of L1 vertebra S32.010A Encounter type: initial encounter Dyslipidemia E78.5 Cyst of left kidney N28.1 Constipation K59.00 COPD (chronic obstructive pulmonary disease) J44.9 (1) Compression fracture of L1 vertebra Encounter type: initial encounter Qualified Code(s): S32.010A - Wedge compression fracture of first lumbar vertebra, initial encounter for closed fracture
--- NOTE | 2024-10-19 14:46 | Electrocardiogram Report ---
Test Reason : Blood Pressure : */* mmHG Vent. Rate : 77 BPM Atrial Rate : 77 BPM P-R Int : 186 ms QRS Dur : 140 ms QT Int : 412 ms P-R-T Axes : -4 -17 -31 degrees QTcB Int : 466 ms Normal sinus rhythm Right bundle branch block Possible Lateral infarct , age undetermined Abnormal ECG No previous ECGs available Confirmed by Uche Ojeda ([id number]) on 10/19/2024 2:46:08 PM Referred By: [facility] Confirmed By: Uche Ojeda
--- NOTE | 2024-10-19 15:09 | Fluoroscopy Report ---
LUMBAR PUNCTURE UNDER FLUOROSCOPY CLINICAL HISTORY: Altered mental status; mastoiditis PROCEDURE: Procedure and risks were explained. Informed consent was obtained over the phone from the power of environmental attorney. A final timeout was completed. The patient was placed prone on the fluoroscopic ex am table. The lower lumbar region was prepped and draped in sterile fashion. 1% lidocaine was utilize d for skin anesthesia. Utilizing fluoroscopic guidance, a 22-gauge spinal needle was advanced into the intrathecal space at the L2-3 disc space level. Fluoroscopic spot images were obtained. Approximately 3 mL of clear CSF fl uid was removed and sent to lab for analysis. The needle was readjusted to try to remove more CSF, bu t was unsuccessful and subsequently removed. The patient tolerated the procedure well. Vital signs wi ll be monitored postprocedure. Fluoroscopy time 14 seconds. Study dosed 32.15 mGy. IMPRESSION: Small-volume lumbar puncture as above. The referring emergency department physician was n otified. Performed, dictated, and signed by Bebeto Martinez PA-C; to be co-signed by Dr. Piyush Kessler. Electronically signed by: Piyush Kessler M.D. 10/19/2024 4:10 PM
[2024-10-19] MEDS: cefTRIAXone SODIUM 2,000 MG/50 ML BAG IV STA (15:20)
[2024-10-19 15:43] LABS: Appearance CSF Clear; CSF Count Tube # 3; CSF Xanthrochromic No xanthochromia; Color CSF Colorless; Red Blood Cell CSF Manual 1 (0); White Blood Cell CSF Manual 3 (0-5)
[2024-10-19 16:04] LABS: Total Protein CSF 48.9 mg/dl (15-45)
[2024-10-19 16:13] LABS: Cryptococcus neoformans/ga PCR Not Detected (NotDetected); Cytomegalovirus PCR Not Detected (NotDetected); Enterovirus PCR Not Detected (NotDetected); Escherichia coli K1 PCR Not Detected (NotDetected); Haemophilius influenzae PCR Not Detected (NotDetected); Herpes Simplex Virus 1 PCR Not Detected (NotDetected); Herpes Simplex Virus 2 PCR Not Detected (NotDetected); Human Herpes Virus 6 PCR Not Detected (NotDetected); Human Parechovirus PCR Not Detected (NotDetected); Listeria monocytogenes PCR Not Detected (NotDetected); Neisseria meningitidis PCR Not Detected (NotDetected); Streptococcus agalactiae PCR Not Detected (NotDetected); Streptococcus pneumoniae PCR Not Detected (NotDetected); Varicella Zoster Virus PCR Not Detected (NotDetected)
[2024-10-19] MEDS ORDERED: ONDANSETRON INJ 2 MG/ML 2 ML VIAL IV PRN (17:07)
[2024-10-19] MEDS ORDERED: POLYETHYLENE (MIRALAX) 17 GM PACK PO PRN (17:07)
[2024-10-19] MEDS ORDERED: MAGNESIUM HYDROXIDE SUSP 30 ML UDC PO PRN (17:07)
[2024-10-19 17:18] LABS: iSTAT Arterial Blood Gas HCO3 28 meg/L (19-24); iSTAT Arterial Blood Gas pCO2 47 mmHg (35-46); iSTAT Arterial Blood Gas pH 7.39 (7.35-7.45); iSTAT Arterial Blood Gas pO2 88 mmHg (80-95); iSTAT Carbon Dioxide 30 mmol/L (24-31); iSTAT Hematocrit 41 % (42-52); iSTAT Hemoglobin 13.9 g/dl (14.0-18.0); iSTAT Potassium 3.9 mmol/L (3.3-5.0); iSTAT Sample Type Arterial; iSTAT Sodium 142 mmol/L (135-144)
[2024-10-19] MEDS: OPTIRAY 320 125ml IV ONE (18:00)
--- NOTE | 2024-10-19 18:29 | CT Scan Report ---
INDICATION: Left upper extremity weakness TECHNIQUE: Axial CT images of the head and neck were obtained following IV contrast administration. Coronal and sagittal reformations were performed and reviewed. COMPARISON: None available at the time of dictation. FINDINGS: CTA: NECK: Aortic arch: Normal caliber without aneurysm, dissection, or stenosis. Vertebral arteries: Normal caliber without dissection or stenosis. Right carotid artery: Calcified and noncalcified plaque formation of the carotid bulb and proximal internal carotid artery. 80-90% stenosis of the proximal right internal carotid artery. Left carotid artery: Calcified and noncalcified plaque present in the carotid bulb and proximal internal carotid artery. Less than 50% stenosis of the internal carotid artery. Head: Intracranial internal carotid arteries: Normal caliber without significant stenosis or aneurysm. Middle cerebral arteries: Normal caliber without significant stenosis or aneurysm. Anterior cerebral arteries: Normal caliber without significant stenosis or aneurysm. Basilar artery: Normal caliber without significant stenosis or aneurysm. Posterior cerebral arteries: Normal caliber without significant stenosis or aneurysm. IMPRESSION: 1. 80-90% stenosis of the proximal right internal carotid artery. No significant stenosis in the left internal carotid artery. 2. No large vessel occlusion/stenosis or aneurysm in the head. Electronically signed by Cricket Panchal 10-19-2024 6:27 PM
[2024-10-19] MEDS: GADOBUTROL 65ML VIAL IV ONE (18:51)
[2024-10-19] MEDS ORDERED: ACETAMINOPHEN 1,000 MG/100 ML VIAL IV PRN (20:20)
--- NOTE | 2024-10-19 20:21 | Magnetic Resonance Report ---
EXAM: MR brain wo/w con CLINICAL HISTORY: AMS Rule out infarct TECHNIQUE: Different pulse sequences were performed in different planes for the brain without and with GD-DTPA injection. 10.5 mL of Gadavist was injected intravenously without complications. Images were sent through PACs for interpretation. COMPARISON: None. FINDINGS: No hyperacute or acute infarctions could be detected. Altered deep white matter signals are seen at the forceps minor, forceps major, periventricular, and centrum semiovale regions. These exhibit bright signals on T2 and FLAIR WI and intermediate signals on T1 WI. Findings suggest consequences of small vessel disease, e.g., hypertensive and/or diabetic vasculopathy. Age-appropriate degenerative involutional changes are denoted by symmetrical dilatation of the ventricular system, prominent cortical sulci, sylvian fissures, cerebellar, vermian folia, and basal cisterns. Normal MRI appearance of the cerebellar parenchymal signals. Normal MRI appearance of the central banks matter aggregates. Normal size and configuration of the cerebral ventricles. Normal MRI appearance of different anatomical parts of the brain stem, namely the midbrain, brayan, and medulla oblongata. Normal MRI appearance of the petrous temporal bones, brainstem, vestibule cochlear nerves, and cerebellopontine angles with no definite masses. No shift of midline structures. No intracerebral or extra-axial hematomas or masses. Normal MRI appearance of orbital structures, both globes, optic nerves, optic chiasm, optic tracts and radiations. The scanned paranasal sinuses are unremarkable. Altered signals at the middle ear cavities and mastoid air cells suggest bilateral otomastoiditis. Clinical and CT correlation is recommended. Elongation of the anterior-posterior dimensions of the left globe with posterior staphylomas consistent with high developmental myopia. Right cataract surgery. Hypertrophic nasal turbinates. The bony nasal septum shows a deviation to the right side. IMPRESSION: 1. No hyperacute or acute infarctions. 2. No intracerebral or extra axial hematoma. 3. Imaging features consistent with the consequences of small vessel disease, e.g., hypertensive and/or diabetic vasculopathy. (Fazekas, grade 2). 4. Age-appropriate degenerative involutional changes. 5. Altered signals at the middle ear cavities and mastoid air cells suggest bilateral otomastoiditis. Clinical and CT correlation is recommended. Electronically signed by Riaz Townsend 10-19-2024 8:21 PM
[2024-10-19] MEDS: ASPIRIN 300 MG SUPP PR ONE (20:54)
[2024-10-19] MEDS ORDERED: NON-FORMULARY MEDICATION (Saliva Stimulant Comb. No.3 [Biotene Moisturizing Mouth] Spray,N mucous membrane PRN (22:05)
[2024-10-19] MEDS ORDERED: bisacodyL 10 MG SUPP PR PRN (22:05)
[2024-10-19] MEDS: LATANOPROST 0.005% OP SOLN 2.5 ML BTL OPR SCH (22:34)
[2024-10-19] MEDS: HEPARIN SOD 5,000 UNIT/0.5 ML VIAL SQ SCH (22:34)
[2024-10-20 06:25] LABS: Hematocrit (blood only) 41.3 % (42.0-52.0); Hemoglobin 12.9 g/dl (14.0-18.0); Mean Corpuscular Hemoglobin 31.8 pg (25.0-34.0); Mean Corpuscular Hgb Conc 31.2 g/dL (32.0-36.0); Mean Corpuscular Volume 101.7 fL (80.0-100.0); Mean Platelet Volume 10.4 fL (9.4-12.4); Platelet Count 215 K/uL (130-400); RDW Coefficient of Variation 13.6 % (11.5-14.5); RDW Standard Deviation 50.9 fL (36.4-46.3); Red Blood Count 4.06 M/uL (4.70-6.10); White Blood Count 11.31 K/ul (4.8-10.8)
[2024-10-20 06:45] LABS: BUN Creatinine Ratio 24.7 (10-20); Creatinine Clr Calc Pharmacy 72.8 ml/min; Potassium 4.1 mmol/L (3.5-5.1)
[2024-10-20] MEDS: FORMOTEROL 20 MCG/2 ML VIAL INH SCH (07:50)
[2024-10-20] MEDS: ASPIRIN 81 MG ECTAB PO SCH (08:29)
--- NOTE | 2024-10-20 11:48 | Communication Note ---
Date of Service: October 20, 2024 Prior to seeing this patient I called the sister. Sister says that he has been worsening with his confusion over the last 2 weeks. She claims at this point she would not like to go ahead with any surgery. She also claims that he has a living will that says that he does not elect to have any surgical procedures. We will reconsider him possibly for TCAR if his confusion clears up and the patient and his sister are agreeable. Please recontact us if there has been a change in mind by the patient or family.
[2024-10-20 12:07] LABS: Albumin Level 3.3 gm/dl (3.4-5.0); Bilirubin Direct 0.2 mg/dl (0-0.2); Bilirubin,Total 1.2 mg/dl (0.2-1.0)
[2024-10-20 12:13] LABS: Total Protein 5.8 gm/dl (6.0-8.3)
[2024-10-20] MEDS: ACETAMINOPHEN 325 MG TAB PO PRN (12:21)
[2024-10-20] MEDS: cefTRIAXone SODIUM 2,000 MG/50 ML BAG IV SCH (14:33)
--- NOTE | 2024-10-20 15:02 | Hospitalist Progress Note ---
Date of Service October 20, 2024 Assessment & Plan (1) COPD (chronic obstructive pulmonary disease): (2) Lumbar radiculopathy: (3) Compression fracture of L1 vertebra: (4) Stenosis of right internal carotid artery: (5) Dyslipidemia: (6) Cyst of left kidney: Plan 84-year-old male resident of [facility], with past medical history of cognitive impairment, hypertension, chronic diastolic congestive heart failure with preserved ejection fraction of 55%, L1 compression fracture with lumbar degenerative disease L4/L5, chronic COPD with chronic respiratory failure on 2 L of oxygen at baseline, left complex renal cyst around 6 cm who presents to the ED with an episode of unresponsiveness #Acute metabolic encephalopathy Patient currently is at his baseline mentation MRI of the brain did not show any evidence of CVA Ammonia levels are normal TSH is 1.752 B12 is 1020 Chest x-ray portable film showed mild vascular congestion Patient had LP done in ED which so far has been unremarkable Patient does have some leukocytosis, urinalysis did not show any evidence of UTI He is on empiric ceftriaxone 2 g IV daily (day 2) Follow-up final cultures Monitor orthostatic vital signs Avoid opiates and benzodiazepines #Right internal carotid artery stenosis Insulin following on CTA head and neck Dr. Collins spoke with patient's sister and at this point sister would not like to go out with any surgical procedures and also sister states that patient has a living will that states that he does not elect to have any surgical procedures. As per vascular surgery, they will reconsider him for possible TCAR if the patient and sister agreeable. Will have patient follow-up with Dr. Collins as outpatient #Chronic hypoxic respiratory failure secondary to chronic COPD Patient is on 2 L of oxygen at baseline Continue nebulizers He is currently not in any exacerbation Monitor #Essential hypertension #Hyperlipidemia Monitor orthostatic vital signs Continue aspirin and statin #Urinary retention #Left complex cyst #History of renal cell carcinoma requiring surgery in [place] 5 years ago Incidental finding of complex left renal cyst in ED on 10/09/2024 Urinary retention is new this week and Andrade was placed at snf facility Patient was advised to follow-up with urology: Dr. Craig as outpatient #L1 compression fracture PT/OT Patient was advised to follow-up with orthospine specialist Dr. Kyree Gamez as outpatient Analgesia with Tylenol as needed Avoid all opiates as it causes patient to get very confused and agitated CODE STATUS: DNR/DNI DVT prophylaxis: Heparin subcutaneous Given multiple comorbidities and recent finding of complex cyst with history of renal cancer and patient not wanting any further surgical interventions, will get palliative care involved Admission and Anticipated Discharge Date Admission Date: October 19, 2024 Subjective Patient seen and examined Sister at bedside Patient denies any chest pain or shortness of breath Patient denies any nausea, vomiting abdominal pain As per sister mentation has been declining but is currently at his baseline Patient lives at [facility] Physical Exam Physical Exam: General: No acute distress Psych: Awake and alert, oriented to place and person HEENT: Anicteric sclera, moist oral mucosa CVS: Regular rate and rhythm Lungs: Bilateral air entry, no wheezing noted Abdomen: Soft, nontender, no rebound, no guarding Ext: No lower extremity edema, no calf tenderness Results & Data Results & Data Vital Signs (Past 12 Hours) Vital Signs Temp Pulse Pulse Resp BP Pulse Ox O2 Del Method 10/20/24 09:45 Nasal Cannula 10/20/24 08:22 36.4 C L 75 18 129/72 96 Nasal Cannula 10/20/24 07:50 75 16 96 Nasal Cannula 10/20/24 03:47 36.5 C 77 24 105/62 93 Oxymask O2 Flow Rate 10/20/24 09:45 2 10/20/24 08:22 10/20/24 07:50 3 10/20/24 03:47 Laboratory Results Laboratory Results - last 24 hr 10/19/24 10/19/24 10/19/24 14:43 15:07 16:58 WBC RBC Hgb POC Hgb 13.9 L Hct POC Hct 41 L MCV MCH MCHC RDW Std Deviation RDW Coeff of Marcia Plt Count MPV Specimen Type Arterial POC pH 7.39 POC pCO2 47 H POC pO2 88 POC HCO3 28 H POC Total CO2 30 POC Base Excess 3.0 H POC ABG O2 Sat 97.0 H POC Sodium 142 Sodium POC Potassium 3.9 Potassium Chloride Carbon Dioxide Anion Gap BUN Creatinine Est Cr Clr Drug Dosing eGFR BUN/Creatinine Ratio Glucose POC Glucose Calcium Total Bilirubin Direct Bilirubin AST ALT Alkaline Phosphatase Total Protein Albumin Vitamin B12 Procalcitonin 0.06 Fluid Comment CSF Appearance Clear CSF Color Colorless Xanthrochromic No xanthochromia CSF WBC 3 CSF RBC 1 CSF Cell Count Tube # 3 CSF Chemistry Tube # 1 CSF Glucose 76 H CSF Total Protein 48.9 H CSF C.neoform/gat PCR Not Detected CSF CMV DNA (PCR) Not Detected CSF Enterovirus (PCR) Not Detected CSF E. coli K1 (PCR) Not Detected CSF H. influenzae (PCR) Not Detected CSF HSV I (PCR) Not Detected CSF HSV II (PCR) Not Detected CSF HHV 6 (PCR) Not Detected CSF L.monocytogenes PCR Not Detected CSF N. meningitidis PCR Not Detected CSF Parechovirus (PCR) Not Detected CSF S. agalactiae (PCR) Not Detected CSF S. pneumoniae (PCR) Not Detected CSF VZV DNA (PCR) Not Detected 10/20/24 10/20/24 06:06 10:33 WBC 11.31 H RBC 4.06 L Hgb 12.9 L POC Hgb Hct 41.3 L POC Hct MCV 101.7 H MCH 31.8 MCHC 31.2 L RDW Std Deviation 50.9 H RDW Coeff of Marcia 13.6 Plt Count 215 MPV 10.4 Specimen Type POC pH POC pCO2 POC pO2 POC HCO3 POC Total CO2 POC Base Excess POC ABG O2 Sat POC Sodium Sodium 142 POC Potassium Potassium 4.1 Chloride 108 H Carbon Dioxide 31 Anion Gap 3 BUN 23 Creatinine 0.93 Est Cr Clr Drug Dosing 72.8 eGFR 79.97 BUN/Creatinine Ratio 24.7 H Glucose 85 POC Glucose 119 H Calcium 9.0 Total Bilirubin 1.2 H Direct Bilirubin 0.2 AST 18 ALT 20 Alkaline Phosphatase 116 H Total Protein 5.8 L Albumin 3.3 L Vitamin B12 1020 H Procalcitonin Fluid Comment CSF Appearance CSF Color Xanthrochromic CSF WBC CSF RBC CSF Cell Count Tube # CSF Chemistry Tube # CSF Glucose CSF Total Protein CSF C.neoform/gat PCR CSF CMV DNA (PCR) CSF Enterovirus (PCR) CSF E. coli K1 (PCR) CSF H. influenzae (PCR) CSF HSV I (PCR) CSF HSV II (PCR) CSF HHV 6 (PCR) CSF L.monocytogenes PCR CSF N. meningitidis PCR CSF Parechovirus (PCR) CSF S. agalactiae (PCR) CSF S. pneumoniae (PCR) CSF VZV DNA (PCR) Diagnostic Findings Lumbar Puncture 10/19/24 13:32 LUMBAR PUNCTURE UNDER FLUOROSCOPY CLINICAL HISTORY: Altered mental status; mastoiditis PROCEDURE: Procedure and risks were explained. Informed consent was obtained over the phone from the power of workers compensation attorney. A final timeout was completed. The patient was placed prone on the fluoroscopic exam table. The lower lumbar region was prepped and draped in sterile fashion. 1% lidocaine was utilized for skin anesthesia. Utilizing fluoroscopic guidance, a 22-gauge spinal needle was advanced into the intrathecal space at the L2-3 disc space level. Fluoroscopic spot images were obtained. Approximately 3 mL of clear CSF fluid was removed and sent to lab for analysis. The needle was readjusted to try to remove more CSF, but was unsuccessful and subsequently removed. The patient tolerated the procedure well. Vital signs will be monitored postprocedure. Fluoroscopy time 14 seconds. Study dosed 32.15 mGy. IMPRESSION: Small-volume lumbar puncture as above. The referring emergency department physician was notified. Performed, dictated, and signed by Bebeto Martinez PA-C; to be co-signed by Dr. Piyush Kessler. Electronically signed by: Piyush Kessler M.D. 10/19/2024 4:10 PM Brain MRI 10/19/24 16:50 EXAM: MR brain wo/w con CLINICAL HISTORY: AMS Rule out infarct TECHNIQUE: Different pulse sequences were performed in different planes for the brain without and with GD-DTPA injection. 10.5 mL of Gadavist was injected intravenously without complications. Images were sent through PACs for interpretation. COMPARISON: None. FINDINGS: No hyperacute or acute infarctions could be detected. Altered deep white matter signals are seen at the forceps minor, forceps major, periventricular, and centrum semiovale regions. These exhibit bright signals on T2 and FLAIR WI and intermediate signals on T1 WI. Findings suggest consequences of small vessel disease, e.g., hypertensive and/or diabetic vasculopathy. Age-appropriate degenerative involutional changes are denoted by symmetrical dilatation of the ventricular system, prominent cortical sulci, sylvian fissures, cerebellar, vermian folia, and basal cisterns. Normal MRI appearance of the cerebellar parenchymal signals. Normal MRI appearance of the central banks matter aggregates. Normal size and configuration of the cerebral ventricles. Normal MRI appearance of different anatomical parts of the brain stem, namely the midbrain, brayan, and medulla oblongata. Normal MRI appearance of the petrous temporal bones, brainstem, vestibule cochlear nerves, and cerebellopontine angles with no definite masses. No shift of midline structures. No intracerebral or extra-axial hematomas or masses. Normal MRI appearance of orbital structures, both globes, optic nerves, optic chiasm, optic tracts and radiations. The scanned paranasal sinuses are unremarkable. Altered signals at the middle ear cavities and mastoid air cells suggest bilateral otomastoiditis. Clinical and CT correlation is recommended. Elongation of the anterior-posterior dimensions of the left globe with posterior staphylomas consistent with high developmental myopia. Right cataract surgery. Hypertrophic nasal turbinates. The bony nasal septum shows a deviation to the right side. IMPRESSION: 1. No hyperacute or acute infarctions. 2. No intracerebral or extra axial hematoma. 3. Imaging features consistent with the consequences of small vessel disease, e.g., hypertensive and/or diabetic vasculopathy. (Fazekas, grade 2). 4. Age-appropriate degenerative involutional changes. 5. Altered signals at the middle ear cavities and mastoid air cells suggest bilateral otomastoiditis. Clinical and CT correlation is recommended. Electronically signed by Riaz Townsend 10-19-2024 8:21 PM Head CTA 10/19/24 17:07 INDICATION: Left upper extremity weakness TECHNIQUE: Axial CT images of the head and neck were obtained following IV contrast administration. Coronal and sagittal reformations were performed and reviewed. COMPARISON: None available at the time of dictation. FINDINGS: CTA: NECK: Aortic arch: Normal caliber without aneurysm, dissection, or stenosis. Vertebral arteries: Normal caliber without dissection or stenosis. Right carotid artery: Calcified and noncalcified plaque formation of the carotid bulb and proximal internal carotid artery. 80-90% stenosis of the proximal right internal carotid artery. Left carotid artery: Calcified and noncalcified plaque present in the carotid bulb and proximal internal carotid artery. Less than 50% stenosis of the internal carotid artery. Head: Intracranial internal carotid arteries: Normal caliber without significant stenosis or aneurysm. Middle cerebral arteries: Normal caliber without significant stenosis or aneurysm. Anterior cerebral arteries: Normal caliber without significant stenosis or aneurysm. Basilar artery: Normal caliber without significant stenosis or aneurysm. Posterior cerebral arteries: Normal caliber without significant stenosis or aneurysm. IMPRESSION: 1. 80-90% stenosis of the proximal right internal carotid artery. No significant stenosis in the left internal carotid artery. 2. No large vessel occlusion/stenosis or aneurysm in the head. Electronically signed by Circket Panchal 10-19-2024 6:27 PM Neck CTA 10/19/24 17:07 INDICATION: Left upper extremity weakness TECHNIQUE: Axial CT images of the head and neck were obtained following IV contrast administration. Coronal and sagittal reformations were performed and reviewed. COMPARISON: None available at the time of dictation. FINDINGS: CTA: NECK: Aortic arch: Normal caliber without aneurysm, dissection, or stenosis. Vertebral arteries: Normal caliber without dissection or stenosis. Right carotid artery: Calcified and noncalcified plaque formation of the carotid bulb and proximal internal carotid artery. 80-90% stenosis of the proximal right internal carotid artery. Left carotid artery: Calcified and noncalcified plaque present in the carotid bulb and proximal internal carotid artery. Less than 50% stenosis of the internal carotid artery. Head: Intracranial internal carotid arteries: Normal caliber without significant stenosis or aneurysm. Middle cerebral arteries: Normal caliber without significant stenosis or aneurysm. Anterior cerebral arteries: Normal caliber without significant stenosis or aneurysm. Basilar artery: Normal caliber without significant stenosis or aneurysm. Posterior cerebral arteries: Normal caliber without significant stenosis or aneurysm. IMPRESSION: 1. 80-90% stenosis of the proximal right internal carotid artery. No significant stenosis in the left internal carotid artery. 2. No large vessel occlusion/stenosis or aneurysm in the head. Electronically signed by Cricket Panchal 10-19-2024 6:27 PM PG Care Time/CCT Total # of Minutes Spent Total Time Spent with Patient: Total time spent is greater than 50% in coordination of care (as documented) at patient's floor/unit and/or counseling patient: Coding Level of Care Code 93368 SUB INP/OBS CARE 3/50MIN Diagnoses COPD (chronic obstructive pulmonary disease) J44.9 Lumbar radiculopathy M54.16 Compression fracture of L1 vertebra S32.010A Encounter type: initial encounter Stenosis of right internal carotid artery I65.21 Dyslipidemia E78.5 Cyst of left kidney N28.1 Time Spent (min) 50 (3) Compression fracture of L1 vertebra Encounter type: initial encounter Qualified Code(s): S32.010A - Wedge compression fracture of first lumbar vertebra, initial encounter for closed fracture
[2024-10-20] MEDS: ALBUT/IPRATROP 3MG/0.5MG NEB 3 ML VIAL INH PRN (15:42)
[2024-10-20] MEDS: BUDESONIDE 0.5 MG/2 ML VIAL (PULMICORT) NEB SCH (19:42)
[2024-10-20] MEDS: ATORVASTATIN 40 MG TAB PO SCH (21:17)
[2024-10-21 08:30] LABS: Hematocrit (blood only) 38.5 % (42.0-52.0); Hemoglobin 12.2 g/dl (14.0-18.0); Mean Corpuscular Hemoglobin 32.1 pg (25.0-34.0); Mean Corpuscular Hgb Conc 31.7 g/dL (32.0-36.0); Mean Corpuscular Volume 101.3 fL (80.0-100.0); Mean Platelet Volume 10.7 fL (9.4-12.4); Platelet Count 218 K/uL (130-400); RDW Coefficient of Variation 13.4 % (11.5-14.5); RDW Standard Deviation 50.2 fL (36.4-46.3); White Blood Count 8.63 K/ul (4.8-10.8)
[2024-10-21 08:45] LABS: BUN Creatinine Ratio 17.8 (10-20); Calcium 8.9 mg/dl (8.6-10.3); Creatinine Clr Calc Pharmacy 76.3 ml/min; Potassium 3.8 mmol/L (3.5-5.1)
--- NOTE | 2024-10-21 09:29 | Palliative Care Consultation ---
Date of Consultation October 21, 2024 Assessment & Plan (1) Palliative care by specialist: Pt remains confused, spoke with pt's sister Emily Valles via phone, she has difficulty coming to visit today, but will be at bedside tomorrow afternoon. [facility] discussion scheduled for tomorrow 10/22/24 at 14:00. History of Present Illness Reason for Consultation: goals of care Requesting Physician: Damion Oliveira MD Attending Physician: Damion Oliveira MD History of Present Illness Mr. 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 On 10/17/24 he was agitated and throwing things. No medication was given that could have increased confusion or agitation. Reported baseline is A&O x 3 and ambulatory without focal deficits. Of note, he has recently placed germain catheter for urinary retention. Patient was seen in the ED on 10/09/24 for back pain that improved with enemas (Hx of chronic constipation). Incidental finding of renal cyst and Urology evaluated, no f/u recommended. He was seen on 10/10/24 for R upper thigh pain a nd L1 compression fracture incidentally found. Pain was treated with Oxy but this was D/Cd on the 10/12 due to hallucinations /AMS with improved mentation after few days. Allergies Allergy/AdvReac Type Severity Reaction Status Date / Time No Known Allergies Allergy Unverified 10/10/24 10:20 Home Medications Medication Instructions Recorded Confirmed Type acetaminophen 325 mg tablet 650 mg PO Q8H PRN Pain/fever 10/10/24 10/19/24 History (Tylenol) arformoterol 15 mcg/2 mL solution 2 ml inhalation BID 10/10/24 10/19/24 History for nebulization aspirin 81 mg chewable tablet 81 mg PO QAM 10/10/24 10/19/24 History bisacodyl 10 mg rectal suppository 10 mg WV DAILY PRN Constipation 10/10/24 10/19/24 History (Dulcolax (bisacodyl)) cyanocobalamin (vitamin B-12) 1,000 mcg PO QAM 10/10/24 10/19/24 History 1,000 mcg tablet ipratropium 0.5 mg-albuterol 3 mg 3 ml inhalation Q2H PRN 10/10/24 10/19/24 History (2.5 mg base)/3 mL nebulization SOB/Wheezing soln ondansetron 4 mg disintegrating 4 mg PO Q6H PRN Nausea And Vomiting 10/10/24 10/19/24 History tablet polyethylene glycol 3350 17 gram 17 g PO QAM 10/10/24 10/19/24 History oral powder packet (Miralax) potassium chloride 20 mEq 20 meq PO BID 10/10/24 10/19/24 History tablet,extended release(part/cryst) revefenacin 175 mcg/3 mL solution 175 mcg inhalation QAM 10/10/24 10/19/24 History for nebulization Milk of Magnesia 30 ml PO DAILY PRN Constipation 10/19/24 10/19/24 History atorvastatin 80 mg tablet 80 mg PO HS 10/19/24 10/19/24 History calcium carbonate 500 mg PO Q6H PRN GERD 10/19/24 10/19/24 History cholecalciferol (vitamin D3) 50 50 mcg PO QAM 10/19/24 10/19/24 History mcg (2,000 unit) tablet furosemide 40 mg tablet 40 mg PO DAILY 10/19/24 10/19/24 History latanoprost 0.005 % eye drops 1 drp ophthalmic (eye) PM 10/19/24 10/19/24 History saliva stimulant comb. no.3 1 spray mucous membrane Q2H PRN 10/19/24 10/19/24 History (Biotene Moisturizing Mouth Dry Mouth mucosal spray) sodium phosphates 19 gram-7 118 ml WV DAILY PRN Constipation 10/19/24 10/19/24 History gram/118 mL enema (Fleet Enema) tamsulosin 0.4 mg capsule 0.4 mg PO HS 10/19/24 10/19/24 History Patient History Social History Smoking Status: Former smoker Tobacco Type: Cigarettes Hx Alcohol Use: No Hx Substance Use: No Preferred Language: Maltese Communication Ability: Effective [employer]oe [employer] M[employer] Required: No Beliefs That Will Affect Care: Roman Catholic Current Living Situation: Correction Feels Safe at Home: Yes Assistive Devices: Oxygen - Continuous and Walker Review of Systems Review of Systems: Unobtainable due to cognitive status Physical Exam Constitutional: well developed, + ill appearing and cooperative; no acute distress Eyes: PERRL, conjunctivae normal, anicteric sclerae ENMT: external ear and nose normal, oropharynx normal Neck: trachea midline, no thyromegaly Respiratory: normal respiratory effort, lungs clear to auscultation Cardiovascular: RRR, no murmur, no edema Gastrointestinal (Abdomen): normal bowel sounds, soft, nontender, no hepatosplenomegaly Neurologic: moves all extremities, awake and + confused Psychiatric: Orientation: oriented to person and cooperative Results & Data Vital Signs (Past 12 Hours) Vital Signs Temp Pulse Resp BP Pulse Ox O2 Del Method O2 Flow Rate 10/21/24 07:22 36.6 C 63 17 134/74 96 Nasal Cannula 1 10/21/24 07:20 86 18 95 Nasal Cannula 1 Laboratory Results Abnormal lab results 10/20/24 10/20/24 10/21/24 Range/Units 06:06 10:33 07:49 RBC 3.80 L (4.70-6.10) M/uL Hgb 12.2 L (14.0-18.0) g/dl Hct 38.5 L (42.0-52.0) % MCV 101.3 H (80.0-100.0) fL MCHC 31.7 L (32.0-36.0) g/dL RDW Std Deviation 50.2 H (36.4-46.3) fL POC Glucose 119 H (70-99) mg/dl Total Bilirubin 1.2 H (0.2-1.0) mg/dl Alkaline Phosphatase 116 H (34-104) U/L Total Protein 5.8 L (6.0-8.3) gm/dl Albumin 3.3 L (3.4-5.0) gm/dl Vitamin B12 1020 H (180-914) pg/ml Diagnostic Findings Chest X-Ray 10/19/24 10:32 XR chest 1V portable CLINICAL HISTORY: weakness COMPARISON STUDY: None FINDINGS: There is moderate cardiomegaly with mild pulmonary vascular congestion. There is opacity at the left base with partial obscuration of the left hemidiaphragm. No pneumothorax. IMPRESSION: 1. Mild CHF. 2. Left lung base opacity could represent atelectasis, early pneumonia, or small left pleural effusion. ACT 112: Negative or not required by law. Electronically signed by: Piyush Kessler M.D. 10/19/2024 11:[address] 10/19/24 10:32 CT head/brain wo con CLINICAL HISTORY: AMS. TECHNIQUE: Multiple axial CT images of the head were obtained without contrast. A dose lowering technique was utilized adhering to the principles of ALARA. CT DOSE: 1796.57 mGy.cm COMPARISON: None FINDINGS: There is motion artifact despite multiple acquisitions. No intracranial hemorrhage seen. No mass effect, midline shift, or hydrocephalus. No skull fracture seen. Visualized paranasal sinuses are clear. There is complete opacification of the mastoid air cells bilaterally IMPRESSION: 1. No acute intracranial findings. 2. Findings consistent with bilateral mastoiditis. ACT 112: Negative or not required by law. The above report was generated using voice recognition software. It may contain grammatical, syntax or spelling errors. Electronically signed by: Piyush Kessler M.D. 10/19/2024 11:40 AM Lumbar Puncture 10/19/24 13:32 LUMBAR PUNCTURE UNDER FLUOROSCOPY CLINICAL HISTORY: Altered mental status; mastoiditis PROCEDURE: Procedure and risks were explained. Informed consent was obtained over the phone from the power of traffic law attorney. A final timeout was completed. The patient was placed prone on the fluoroscopic exam table. The lower lumbar region was prepped and draped in sterile fashion. 1% lidocaine was utilized for skin anesthesia. Utilizing fluoroscopic guidance, a 22-gauge spinal needle was advanced into the intrathecal space at the L2-3 disc space level. Fluoroscopic spot images were obtained. Approximately 3 mL of clear CSF fluid was removed and sent to lab for analysis. The needle was readjusted to try to remove more CSF, but was unsuccessful and subsequently removed. The patient tolerated the procedure well. Vital signs will be monitored postprocedure. Fluoroscopy time 14 seconds. Study dosed 32.15 mGy. IMPRESSION: Small-volume lumbar puncture as above. The referring emergency department physician was notified. Performed, dictated, and signed by Bebeto Martinez PA-C; to be co-signed by Dr. Piyush Kessler. Electronically signed by: Piyush Kessler M.D. 10/19/2024 4:10 PM Brain MRI 10/19/24 16:50 EXAM: MR brain wo/w con CLINICAL HISTORY: AMS Rule out infarct TECHNIQUE: Different pulse sequences were performed in different planes for the brain without and with GD-DTPA injection. 10.5 mL of Gadavist was injected intravenously without complications. Images were sent through PACs for interpretation. COMPARISON: None. FINDINGS: No hyperacute or acute infarctions could be detected. Altered deep white matter signals are seen at the forceps minor, forceps major, periventricular, and centrum semiovale regions. These exhibit bright signals on T2 and FLAIR WI and intermediate signals on T1 WI. Findings suggest consequences of small vessel disease, e.g., hypertensive and/or diabetic vasculopathy. Age-appropriate degenerative involutional changes are denoted by symmetrical dilatation of the ventricular system, prominent cortical sulci, sylvian fissures, cerebellar, vermian folia, and basal cisterns. Normal MRI appearance of the cerebellar parenchymal signals. Normal MRI appearance of the central banks matter aggregates. Normal size and configuration of the cerebral ventricles. Normal MRI appearance of different anatomical parts of the brain stem, namely the midbrain, brayan, and medulla oblongata. Normal MRI appearance of the petrous temporal bones, brainstem, vestibule cochlear nerves, and cerebellopontine angles with no definite masses. No shift of midline structures. No intracerebral or extra-axial hematomas or masses. Normal MRI appearance of orbital structures, both globes, optic nerves, optic chiasm, optic tracts and radiations. The scanned paranasal sinuses are unremarkable. Altered signals at the middle ear cavities and mastoid air cells suggest bilateral otomastoiditis. Clinical and CT correlation is recommended. Elongation of the anterior-posterior dimensions of the left globe with posterior staphylomas consistent with high developmental myopia. Right cataract surgery. Hypertrophic nasal turbinates. The bony nasal septum shows a deviation to the right side. IMPRESSION: 1. No hyperacute or acute infarctions. 2. No intracerebral or extra axial hematoma. 3. Imaging features consistent with the consequences of small vessel disease, e.g., hypertensive and/or diabetic vasculopathy. (Fazekas, grade 2). 4. Age-appropriate degenerative involutional changes. 5. Altered signals at the middle ear cavities and mastoid air cells suggest bilateral otomastoiditis. Clinical and CT correlation is recommended. Electronically signed by Riaz Townsend 10-19-2024 8:21 PM Head CTA 10/19/24 17:07 INDICATION: Left upper extremity weakness TECHNIQUE: Axial CT images of the head and neck were obtained following IV contrast administration. Coronal and sagittal reformations were performed and reviewed. COMPARISON: None available at the time of dictation. FINDINGS: CTA: NECK: Aortic arch: Normal caliber without aneurysm, dissection, or stenosis. Vertebral arteries: Normal caliber without dissection or stenosis. Right carotid artery: Calcified and noncalcified plaque formation of the carotid bulb and proximal internal carotid artery. 80-90% stenosis of the proximal right internal carotid artery. Left carotid artery: Calcified and noncalcified plaque present in the carotid bulb and proximal internal carotid artery. Less than 50% stenosis of the internal carotid artery. Head: Intracranial internal carotid arteries: Normal caliber without significant stenosis or aneurysm. Middle cerebral arteries: Normal caliber without significant stenosis or aneurysm. Anterior cerebral arteries: Normal caliber without significant stenosis or aneurysm. Basilar artery: Normal caliber without significant stenosis or aneurysm. Posterior cerebral arteries: Normal caliber without significant stenosis or aneurysm. IMPRESSION: 1. 80-90% stenosis of the proximal right internal carotid artery. No significant stenosis in the left internal carotid artery. 2. No large vessel occlusion/stenosis or aneurysm in the head. Electronically signed by Cricket Panchal 10-19-2024 6:27 PM Neck CTA 10/19/24 17:07 INDICATION: Left upper extremity weakness TECHNIQUE: Axial CT images of the head and neck were obtained following IV contrast administration. Coronal and sagittal reformations were performed and reviewed. COMPARISON: None available at the time of dictation. FINDINGS: CTA: NECK: Aortic arch: Normal caliber without aneurysm, dissection, or stenosis. Vertebral arteries: Normal caliber without dissection or stenosis. Right carotid artery: Calcified and noncalcified plaque formation of the carotid bulb and proximal internal carotid artery. 80-90% stenosis of the proximal right internal carotid artery. Left carotid artery: Calcified and noncalcified plaque present in the carotid bulb and proximal internal carotid artery. Less than 50% stenosis of the internal carotid artery. Head: Intracranial internal carotid arteries: Normal caliber without significant stenosis or aneurysm. Middle cerebral arteries: Normal caliber without significant stenosis or aneurysm. Anterior cerebral arteries: Normal caliber without significant stenosis or aneurysm. Basilar artery: Normal caliber without significant stenosis or aneurysm. Posterior cerebral arteries: Normal caliber without significant stenosis or aneurysm. IMPRESSION: 1. 80-90% stenosis of the proximal right internal carotid artery. No significant stenosis in the left internal carotid artery. 2. No large vessel occlusion/stenosis or aneurysm in the head. Electronically signed by Cricket Panchal 10-19-2024 6:27 PM Medications Administered Current Inpatient Medications Acetaminophen (Acetaminophen 325 Mg Tab) 650 mg PO Q4H PRN PRN Reason: Pain or Fever Stop: 11/18/24 17:06 Last Admin: 10/21/24 09:29 Dose: 650 mg Al Hydrox/Mg Hydrox/Simethicone (Aluminum/Magnesium Susp 30 Ml Udc) 15 ml PO Q4H PRN PRN Reason: Dyspepsia Stop: 11/18/24 17:06 Albuterol (Albut/Ipratrop 3mg/0.5mg Neb 3 Ml Vial) 3 ml INH Q2H PRN; Protocol PRN Reason: SOB/Wheezing Stop: 11/18/24 22:04 Last Admin: 10/20/24 15:42 Dose: 3 ml Aspirin (Aspirin 81 Mg Ectab) 81 mg PO QAM [place] Stop: 11/19/24 08:59 Last Admin: 10/21/24 09:21 Dose: 81 mg Atorvastatin Calcium (Atorvastatin 40 Mg Tab) 80 mg PO HS [place] Stop: 11/19/24 20:59 Last Admin: 10/20/24 21:17 Dose: 80 mg Bisacodyl (Bisacodyl 10 Mg Supp) 10 mg WV DAILY PRN PRN Reason: Constipation Stop: 11/18/24 22:04 Budesonide (Budesonide 0.5 Mg/2 Ml Vial (Pulmicort)) 0.5 mg NEB BIDR [place] Stop: 11/19/24 18:59 Last Admin: 10/21/24 07:19 Dose: 0.5 mg Formoterol Fumarate (Formoterol 20 Mcg/2 Ml Vial) 20 mcg INH BIDR [place] Stop: 11/19/24 06:59 Last Admin: 10/21/24 07:20 Dose: 20 mcg Heparin Sodium (Porcine) (Heparin Sod 5,000 Unit/0.5 Ml Vial) 5,000 units SQ Q8 [place] Stop: 11/18/24 21:59 Last Admin: 10/21/24 06:19 Dose: 5,000 units Ceftriaxone Sodium (Rocephin) 2,000 mg in 50 mls @ 100 mls/hr IV Q24H [place] Stop: 10/22/24 14:59 Last Infusion: 10/20/24 15:50 Dose: Infused Latanoprost (Latanoprost 0.005% Op Soln 2.5 Ml Btl) 1 drops OPR QPM [place] Stop: 11/18/24 20:59 Last Admin: 10/20/24 21:17 Dose: 1 drops Magnesium Hydroxide (Magnesium Hydroxide Susp 30 Ml Udc) 30 ml PO Q12H PRN PRN Reason: Constipation Stop: 11/18/24 17:06 Miscellaneous (Order Awaiting Action: Revefenacin 175 Mcg/3 Ml Solution For Nebulization) 1 each N/A QS [place] Stop: 11/19/24 00:00 Last Admin: 10/21/24 09:21 Dose: Not Given Ondansetron HCl (Ondansetron Inj 2 Mg/Ml 2 Ml Vial) 4 mg IV Q6H PRN PRN Reason: Nausea Stop: 11/18/24 17:06 Polyethylene Glycol (Polyethylene (Miralax) 17 Gm Pack) 17 gm PO DAILY PRN PRN Reason: Constipation Stop: 11/18/24 17:06 PG Care Time/CCT Total # of Minutes Spent Total Time Spent with Patient: Total time spent is greater than 50% in coordination of care (as documented) at patient's floor/unit and/or counseling patient: [place] [address] IN/OBS CONSULT LVL 3,45M Patient Type New History Problem Focused Exam Problem Focused Medical Decision Making Low Complexity Diagnoses Palliative care by specialist Z51.5
--- NOTE | 2024-10-21 13:13 | Hospitalist Progress Note ---
Date of Service October 21, 2024 Assessment & Plan (1) COPD (chronic obstructive pulmonary disease): (2) Lumbar radiculopathy: (3) Compression fracture of L1 vertebra: (4) Stenosis of right internal carotid artery: (5) Dyslipidemia: (6) Cyst of left kidney: Plan 84-year-old male resident of [facility], with past medical history of cognitive impairment, hypertension, chronic diastolic congestive heart failure with preserved ejection fraction of 55%, L1 compression fracture with lumbar degenerative disease L4/L5, chronic COPD with chronic respiratory failure on 2 L of oxygen at baseline, left complex renal cyst around 6 cm who presents to the ED with an episode of unresponsiveness #Acute metabolic encephalopathy Patient currently is at his baseline mentation MRI of the brain did not show any evidence of CVA Ammonia levels are normal TSH is 1.752 B12 is 1020 Chest x-ray portable film showed mild vascular congestion Patient had LP done in ED which so far has been unremarkable Patient does have some leukocytosis, urinalysis did not show any evidence of UTI Patient has finished 3 days of IV ceftriaxone and all cultures have been negative Will stop IV ceftriaxone White count has normalized Monitor orthostatic vital signs Avoid opiates and benzodiazepines #Right internal carotid artery stenosis Finding on CTA head and neck Dr. Collins spoke with patient's sister and at this point sister would not like to go out with any surgical procedures and also sister states that patient has a living will that states that he does not elect to have any surgical procedures. As per vascular surgery, they will reconsider him for possible TCAR if the patient and sister agreeable. Will have patient follow-up with Dr. Collins as outpatient #Chronic hypoxic respiratory failure secondary to chronic COPD Patient is on 2 L of oxygen at baseline Continue nebulizers He is currently not in any exacerbation Monitor #Essential hypertension #Hyperlipidemia Monitor orthostatic vital signs Continue aspirin and statin #Urinary retention #Left complex cyst #History of renal cell carcinoma requiring surgery in [place] 5 years ago Incidental finding of complex left renal cyst in ED on 10/09/2024 Urinary retention is new this week and Andrade [facility] Patient was advised to follow-up with urology: Dr. Craig as outpatient #L1 compression fracture PT saw the patient and recommended SNF with PT on discharge Patient was advised to follow-up with orthospine specialist Dr. Kyree Gamez as outpatient Analgesia with Tylenol as needed Avoid all opiates as it causes patient to get very confused and agitated CODE STATUS: DNR/DNI DVT prophylaxis: Heparin subcutaneous Patient is awaiting palliative care meeting with family which is scheduled for tomorrow Discharge planning back to SNF with PT based on palliative care meeting likely in the next 24 to 48 hours Admission and Anticipated Discharge Date Admission Date: October 19, 2024 Subjective Patient seen and examined He is complaining of lower back pain when he is trying to move. He does not want any opiates because they make him confused He denies any chest pain, cough, shortness of breath, nausea, vomiting or abdominal pain He worked with physical therapy today who recommended returning to SNF with continued physical therapy at SNF He endorses that he does not want any surgical interventions Physical Exam Physical Exam: General: No acute distress Psych: Awake and alert, oriented to place and person HEENT: Anicteric sclera, moist oral mucosa CVS: Regular rate and rhythm Lungs: Bilateral air entry, no wheezing noted Abdomen: Soft, nontender, no rebound, no guarding Ext: No lower extremity edema, no calf tenderness Results & Data Results & Data Vital Signs (Past 12 Hours) Vital Signs Temp Pulse Resp BP Pulse Ox O2 Del Method O2 Flow Rate 10/21/24 12:05 36.8 C 86 18 104/63 95 Nasal Cannula 1 10/21/24 08:00 Nasal Cannula 1 10/21/24 07:22 36.6 C 63 17 134/74 96 Nasal Cannula 1 10/21/24 07:20 86 18 95 Nasal Cannula 1 Laboratory Results Laboratory Results - last 24 hr 10/21/24 07:49 WBC 8.63 RBC 3.80 L Hgb 12.2 L Hct 38.5 L MCV 101.3 H MCH 32.1 MCHC 31.7 L RDW Std Deviation 50.2 H RDW Coeff of Marcia 13.4 Plt Count 218 MPV 10.7 Sodium 142 Potassium 3.8 Chloride 107 Carbon Dioxide 31 Anion Gap 4 BUN 16 Creatinine 0.90 Est Cr Clr Drug Dosing 76.3 eGFR 83.18 BUN/Creatinine Ratio 17.8 Glucose 90 Calcium 8.9 Magnesium 2.0 PG Care Time/CCT Total # of Minutes Spent Total Time Spent with Patient: Total time spent is greater than 50% in coordination of care (as documented) at patient's floor/unit and/or counseling patient: Coding Level of Care Code 09896 SUB INP/OBS CARE MIN Diagnoses COPD (chronic obstructive pulmonary disease) J44.9 Lumbar radiculopathy M54.16 Compression fracture of L1 vertebra S32.010A Encounter type: initial encounter Stenosis of right internal carotid artery I65.21 Dyslipidemia E78.5 Cyst of left kidney N28.1 (3) Compression fracture of L1 vertebra Encounter type: initial encounter Qualified Code(s): S32.010A - Wedge compression fracture of first lumbar vertebra, initial encounter for closed fracture
[2024-10-21] MEDS ORDERED: LIDOCAINE 5% 1 PATCH TD STA (18:13)
[2024-10-21] MEDS: QUEtiapine FUMARATE 25 MG TABLET PO ONE (19:04)
[2024-10-21] MEDS ORDERED: Nursing to Pharmacy Communication SCH (19:15)
[2024-10-21] MEDS: ACETAMINOPHEN 500 MG TAB PO PRN (20:11)
[2024-10-21] MEDS: LIDOCAINE 5% 1 PATCH TD SCH (20:12)
[2024-10-22] MEDS ORDERED: LIDOCAINE 5% 1 PATCH TD SCH (09:00)
--- NOTE | 2024-10-22 10:37 | Psychiatric Consultation ---
Date of Consultation October 22, 2024 Impression / Recommendations Impression Diagnostically consistent with likely encephalopathy/delirium given waxing and waning symptoms and periods of visual hallucinations. Unfortunately there are no known medications to cure or shorten the duration of delirium; rather antipsychotics are used at times to help with sleep/appetite/psychomotor agitation and hallucinations if these symptoms are causing significant distress and/or interfering with acute safety. Duration of delirium varies broadly with persistent delirium (defined as lasting for weeks or months) occurring frequently with nlxkbogdyrqon50% of patients exhibiting some symptoms of delirium at 6 months after symptom onset, see:Lex Francis., Awilda Ramey., Dhruv Linareset al.Delirium.Basilia Rev Dis Primers6, 90 (2020). https://doi.org/[email or web address]/[email or web address]. Goal in delirium is to avoid medication management of behaviors if possible by maximizing non-pharmacologic strategies for behavioral management. However, if he develops worsening agitation/aggression/psychic distress from paranoia then could consider starting an antipsychotic based on risk/benefit profile. History of significant medication sensitivity, suggests possibility that he is a slow metabolizer. Overall, I spent a total of 60 minutes with this case including review of chart records, review of labwork, review of EKG QTc, direct evaluation of the patient at bedside, counseling the patient, discussion of the patient with the Nurse and with the hospitalist provider, discussion with the psychiatric liason during clinical rounds and documentation in the electronic health record. (1) Delirium: (2) COPD (chronic obstructive pulmonary disease): (3) Lumbar radiculopathy: (4) Compression fracture of L1 vertebra: Encounter type: initial encounter Qualified Code(s): S32.010A - Wedge compression fracture of first lumbar vertebra, initial encounter for closed fracture Plan -Consider trial of abilify 2mg at dinner time or HS for concern for sundowning or increased delirium at night in recent weeks -Optional alternative of Seroquel 12.5mg at dinner time or HS Psych History Identifying Data Mr. 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 Psychiatry consulted for medication recommendations for visual hallucinations. Chief Complaint "It was like I was sitting on a bus moving really slowly through the [place]". History of Present Illness Bhargav is seen for psychiatric consult for recent periods of intermittent confusion/decreased responsiveness and visual hallucinations. Today he is fully oriented but expresses significant concerns about being left alone due to fears that the nurses will try to harm him. Per chart review seems he has been experiencing episodes of delirium with visual hallucinations (describes yesterday feeling like he was 'on a bus'). None today. Was able to sleep overnight, and feels he slept well. Today he expresses concerns about treatment by staff, including feelings of being ignored and roughly handled, contributing to paranoid thoughts about staff intentions. He reports his main concern is severe back pain, describing it as a 'knife' going through back during attempted transfers. Unable to bear weight on legs during chair transfer attempt. Expresses desire for physical activity but limited by current condition. He also reports constipation with sensation of needed to have a bowel movement but inability to do so. Last bowel movement was yesterday, passing gas. Has been trying to use the bedside commode multiple times this morning but reports he hasn't been able to have a bowel movement and feels constipated. Patient reports historical sensitivity to medications, stating "medicine don't agree with me." Allergies Allergy/AdvReac Type Severity Reaction Status Date / Time No Known Allergies Allergy Unverified 10/10/24 10:20 Home Medications Medication Instructions Recorded Confirmed Type acetaminophen 325 mg tablet 650 mg PO Q8H PRN Pain/fever 10/10/24 10/19/24 History (Tylenol) arformoterol 15 mcg/2 mL solution 2 ml inhalation BID 10/10/24 10/19/24 History for nebulization aspirin 81 mg chewable tablet 81 mg PO QAM 10/10/24 10/19/24 History bisacodyl 10 mg rectal suppository 10 mg DC DAILY PRN Constipation 10/10/24 10/19/24 History (Dulcolax (bisacodyl)) cyanocobalamin (vitamin B-12) 1,000 mcg PO QAM 10/10/24 10/19/24 History 1,000 mcg tablet ipratropium 0.5 mg-albuterol 3 mg 3 ml inhalation Q2H PRN 10/10/24 10/19/24 H istory (2.5 mg base)/3 mL nebulization SOB/Wheezing soln ondansetron 4 mg disintegrating 4 mg PO Q6H PRN Nausea And Vomiting 10/10/24 10/19/24 History tablet polyethylene glycol 3350 17 gram 17 g PO QAM 10/10/24 10/19/24 History oral powder packet (Miralax) potassium chloride 20 mEq 20 meq PO BID 10/10/24 10/19/24 History tablet,extended release(part/cryst) revefenacin 175 mcg/3 mL solution 175 mcg inhalation QAM 10/10/24 10/19/24 History for nebulization Milk of Magnesia 30 ml PO DAILY PRN Constipation 10/19/24 10/19/24 History atorvastatin 80 mg tablet 80 mg PO HS 10/19/24 10/19/24 History calcium carbonate 500 mg PO Q6H PRN GERD 10/19/24 10/19/24 History cholecalciferol (vitamin D3) 50 50 mcg PO QAM 10/19/24 10/19/24 History mcg (2,000 unit) tablet furosemide 40 mg tablet 40 mg PO DAILY 10/19/24 10/19/24 History latanoprost 0.005 % eye drops 1 drp ophthalmic (eye) PM 10/19/24 10/19/24 History saliva stimulant comb. no.3 1 spray mucous membrane Q2H PRN 10/19/24 10/19/24 History (Biotene Moisturizing Mouth Dry Mouth mucosal spray) sodium phosphates 19 gram-7 118 ml DC DAILY PRN Constipation 10/19/24 10/19/24 History gram/118 mL enema (Fleet Enema) tamsulosin 0.4 mg capsule 0.4 mg PO HS 10/19/24 10/19/24 History Patient History Social History Smoking Status: Former smoker Tobacco Type: Cigarettes Hx Alcohol Use: No Hx Substance Use: No Preferred Language: Hebrew Communication Ability: Effective Telephone Maintainer Required: No Beliefs That Will Affect Care: Jehovah'[employer] Witness Current Living Situation: Correction Feels Safe at Home: Yes Assistive Devices: Oxygen - Continuous and Walker Physical Exam Vital Signs (Past 24 Hours): Last Vital Signs Temp 36.7 C 10/22/24 07:46 Pulse 69 10/22/24 07:46 Resp 20 10/22/24 07:46 BP 134/73 10/22/24 07:46 Pulse Ox 94 10/22/24 07:46 O2 Del Method Nasal Cannula 10/22/24 08:00 O2 Flow Rate 3 10/22/24 08:00 Results & Data (PSY) Medications Administered Acetaminophen (Acetaminophen 500 Mg Tab) 1,000 mg PO TID PRN PRN Reason: Pain Stop: 11/20/24 20:59 Last Admin: 10/21/24 20:11 Dose: 1,000 mg Documented By: ISABELLA Albuterol (Albut/Ipratrop 3mg/0.5mg Neb 3 Ml Vial) 3 ml INH Q2H PRN; Protocol PRN Reason: SOB/Wheezing Stop: 11/18/24 22:04 Last Admin: 10/20/24 15:42 Dose: 3 ml Documented By: [id number] Aspirin (Aspirin 81 Mg Ectab) [facility] [place] Stop: 11/19/24 08:59 Last Admin: 10/22/24 08:09 Dose: 81 mg Documented By: Admin: 10/21/24 09:21 Dose: 81 mg Documented By: ISABELLA(2) Admin: 10/20/24 08:29 Dose: 81 mg Documented By: LUIS ANGEL Atorvastatin Calcium (Atorvastatin 40 Mg Tab) 80 mg PO [facility] Stop: 11/19/24 20:59 Last Admin: 10/21/24 20:11 Dose: 80 mg Documented By: Admin: 10/20/24 21:17 Dose: 80 mg Documented By: [facility] Budesonide (Budesonide 0.5 Mg/2 Ml Vial (Pulmicort)) 0.5 mg NEB BIDR [place] Stop: 11/19/24 18:59 Last Admin: 10/22/24 07:07 Dose: 0.5 mg Documented By: Admin: 10/21/24 20:20 Dose: 0.5 mg Documented By: Admin: 10/21/24 07:19 Dose: 0.5 mg Documented By: Admin: 10/20/24 19:42 Dose: 0.5 mg Documented By: MARIAH Formoterol Fumarate (Formoterol 20 Mcg/2 Ml Vial) 20 mcg INH BIDR [place] Stop: 11/19/24 06:59 Last Admin: 10/22/24 07:07 Dose: 20 mcg Documented By: Admin: 10/21/24 20:20 Dose: 20 mcg Documented By: Admin: 10/21/24 07:20 Dose: 20 mcg Documented By: Admin: 10/20/24 19:43 Dose: 20 mcg Documented By: Admin: 10/20/24 07:50 Dose: 20 mcg Documented By: [id number] Heparin Sodium (Porcine) (Heparin Sod 5,000 Unit/0.5 Ml Vial) 5,000 units SQ Q8 [place] Stop: 11/18/24 21:59 Last Admin: 10/22/24 06:07 Dose: 5,000 units Documented By: Admin: 10/21/24 20:12 Dose: 5,000 units Documented By: Admin: 10/21/24 14:35 Dose: 5,000 units Documented By: ISABELLA(2) Admin: 10/21/24 06:19 Dose: 5,000 units Documented By: [facility] Admin: 10/20/24 21:17 Dose: 5,000 units Documented By: Admin: 10/20/24 14:30 Dose: 5,000 units Documented By: [facility] Admin: 10/20/24 06:07 Dose: 5,000 units Documented By: [facility] Admin: 10/19/24 22:34 Dose: 5,000 units Documented By: [facility] Latanoprost (Latanoprost 0.005% Op Soln 2.5 Ml Btl) 1 drops OPR QPM [place] Stop: 11/18/24 20:59 Last Admin: 10/21/24 20:12 Dose: 1 drops Documented By: Admin: 10/20/24 21:17 Dose: 1 drops Documented By: [facility] Admin: 10/19/24 22:34 Dose: 1 drops Documented By: [facility] Lidocaine (Lidocaine 5% 1 Patch) 1 patch TD HS [place] Stop: 11/20/24 20:59 Last Admin: 10/21/24 20:12 Dose: 1 patch Documented By: ISABELLA Miscellaneous (Order Awaiting Action: Revefenacin 175 Mcg/3 Ml Solution For Nebulization) 1 each N/A QS [place] Stop: 11/19/24 00:00 Last Admin: 10/22/24 08:10 Dose: Not Given Documented By: Admin: 10/21/24 23:52 Dose: Not Given Documented By: Admin: 10/21/24 16:10 Dose: Not Given Documented By: MPS(2) Admin: 10/21/24 09:21 Dose: Not Given Documented By: MPS(2) Admin: 10/21/24 00:03 Dose: Not Given Documented By: Admin: 10/20/24 15:50 Dose: Not Given Documented By: Admin: 10/20/24 09:13 Dose: Not Given Documented By: LUIS ANGEL Admin: 10/19/24 23:16 Dose: Not Given Documented By: [facility] Miscellaneous (Remove Lidoderm Patch) 1 each N/A DAILY@0900 [facility] Stop: 11/21/24 08:59 Last Admin: 10/22/24 08:10 Dose: 1 each Documented By: Coding Level of Care Code 48154 IN/OBS CONSULT LVL 4,60M Diagnoses Delirium R41.0 COPD (chronic obstructive pulmonary disease) J44.9 Lumbar radiculopathy M54.16 Compression fracture of L1 vertebra S32.010A Encounter type: initial encounter
--- NOTE | 2024-10-22 12:46 | Hospitalist Progress Note ---
Date of Service October 22, 2024 Assessment & Plan (1) COPD (chronic obstructive pulmonary disease): (2) Lumbar radiculopathy: (3) Compression fracture of L1 vertebra: (4) Stenosis of right internal carotid artery: (5) Dyslipidemia: (6) Cyst of left kidney: Plan 84-year-old male [place] [facility] [place] [facility] [place] past medical history of cognitive impairment, hypertension, chronic diastolic congestive heart failure with preserved ejection fraction of 55%, L1 compression fracture with lumbar degenerative disease L4/L5, chronic COPD with chronic respiratory failure on 2 L of oxygen at baseline, left complex renal cyst around 6 cm who presents to the ED with an episode of unresponsiveness #Acute metabolic encephalopathy #Delirium with visual hallucinations Patient currently is at his baseline mentation MRI of the brain did not show any evidence of CVA Ammonia levels are normal TSH is 1.752 B12 is 1020 Chest x-ray portable film showed mild vascular congestion Patient had LP done in ED which so far has been unremarkable Patient does have some leukocytosis, urinalysis did not show any evidence of UTI Patient has finished 3 days of IV ceftriaxone and all cultures have been negative White count has normalized Monitor orthostatic vital signs Avoid opiates and benzodiazepines Psychiatry consulted: Await risk control consultant recommendations #Right internal carotid artery stenosis Finding on CTA head and neck Dr. Collins spoke with patient's sister and at this point sister would not like to go out with any surgical procedures and also sister states that patient has a living will that states that he does not elect to have any surgical procedures. As per vascular surgery, they will reconsider him for possible TCAR if the patient and sister agreeable. Will have patient follow-up with Dr. Collins as outpatient #Chronic hypoxic respiratory failure secondary to chronic COPD Patient is on 2 L of oxygen at baseline Continue nebulizers He is currently not in any exacerbation Monitor #Essential hypertension #Hyperlipidemia Monitor orthostatic vital signs Continue aspirin and statin #Urinary retention #Left complex cyst #History of renal cell carcinoma requiring surgery in [place] 5 years ago Incidental finding of complex left renal cyst in ED on 10/09/2024 Urinary retention is new this week and Andrade [facility] Patient was advised to follow-up with urology: Dr. Craig as outpatient #L1 compression fracture PT saw the patient and recommended SNF with PT on discharge Patient was advised to follow-up with orthospine specialist Dr. Kyree Lakatos as outpatient Analgesia with Tylenol scheduled and Lidoderm patch Avoid all opiates as it causes patient to get very confused and agitated As per patient sister, even tramadol causes confusion and to avoid all opiates including tramadol CODE STATUS: DNR/DNI DVT prophylaxis: Heparin subcutaneous Patient is awaiting palliative care meeting with family which is scheduled for this afternoon Discharge planning back to SNF with PT based on palliative care meeting likely tomorrow Admission and Anticipated Discharge Date Admission Date: October 19, 2024 Subjective Patient seen and examined Patient states he forgets things easily. He denies any chest pain or shortness of breath He is aware that he was hallucinating last night: He recalls vividly being on a train and seeing trees passing by and was not distressed by it He feels that his family is more distressed by his hallucinations and he is He does not want to be on any opiates for pain medication He states Lidoderm patch has helped him with the pain along with Tylenol Physical Exam Physical Exam: General: No acute distress Psych: Awake and alert, oriented to place and person HEENT: Anicteric sclera, moist oral mucosa CVS: Regular rate and rhythm Lungs: Bilateral air entry, no wheezing noted Abdomen: Soft, nontender, no rebound, no guarding Ext: No lower extremity edema, no calf tenderness Results & Data Results & Data Vital Signs (Past 12 Hours) Vital Signs Temp Pulse Resp BP Pulse Ox O2 Del Method O2 Flow Rate 10/22/24 08:00 Nasal Cannula 3 10/22/24 07:46 36.7 C 69 20 134/73 94 Nasal Cannula 2 10/22/24 07:07 71 18 96 Nasal Cannula 2 PG Care Time/CCT Total # of Minutes Spent Total Time Spent with Patient: Total time spent is greater than 50% in coordination of care (as documented) at patient's floor/unit and/or counseling patient: Coding Level of Care Code 01622 SUB INP/OBS CARE 2/35MIN Diagnoses COPD (chronic obstructive pulmonary disease) J44.9 Lumbar radiculopathy M54.16 Compression fracture of L1 vertebra S32.010A Encounter type: initial encounter Stenosis of right internal carotid artery I65.21 Dyslipidemia E78.5 Cyst of left kidney N28.1 (3) Compression fracture of L1 vertebra Encounter type: initial encounter Qualified Code(s): S32.010A - Wedge compression fracture of first lumbar vertebra, initial encounter for closed fracture
[2024-10-22] MEDS: ALUMINUM/MAGNESIUM SUSP 30 ML UDC PO PRN (21:38)
--- NOTE | 2024-10-22 22:27 | Palliative Family Discussion ---
Date of Service October 22, 2024 Patient Directed Conference Time of Meetin:00 - 14:45 Participants: Liliane Brian AGACNP Patient participation: no Patient Support System: sister Emily & wally Olivarez Other Healthcare Provider Participation: None Meeting Location: waiting room Advanced Directive available: Yes If yes, descriptors: AD paperwork on file which was properly executed by patient onand nnotarized designates patient's sister Leola primary HCPOA and no secondary HCPOA for all medical decisions in the event he lacks decisional capacity. The patient's surrogate medical decision maker participated: y Legally authorized health care proxy: per AD Other surrogate: NO A family meeting was held for BLESSING ZABALA. This meeting was necessary for determining the appropriate course of treatment. Topics of Discussion Topics of Discussion: 1. Advanced directve 2. pt values/goals 3. dementia vs delirium Other Content of Meetin. Opportunity given for participants to speak and ask questions. 2. Participants were assured of attention to patient comfort. 3. Reassurance provided. 4. Support was provided for informed, good-arden decisions. 5. Emotions expressed by family were acknowledged and addressed. 6. Follow-up Outpatient: TBD 7. Plan of Care: DNR/DNI; Continue current level of care . Met with pt's sister Emily sand wally Olivarez in waiting room. . Introduced Palliative Medicine and explained our role in advanced care planning, symptom management and navigation through the progression of life limiting disease. Patient and/or family were receptive to palliative services for goals of care discussions. Reviewed we are different from hospice, a home health nurse visiting service. Sher shared that pt had been doing well at SNF until he had a acute change in cognition about two week ago. Pt was reportedly requiring minimal assistance with ADLs three weeks ago. He shared that for the last 2wks, p t has been "acting out" at the SNF and resisting almost all nursing care including his medications. Emily expressed concern for dementia vs an adverse reaction to seroquel or pain medication. Sher shared that up until about 4yr ago the patient never took anything stronger than tylenol. Discussed the need to balance adequate pain management against confusion if nonpharmacologic amnalgesia is not sufficient to control pain. Emily again shared concern that patient is generally sharp minded and fear that he may be developing dementia. Shared with Emily that It is often difficult to distinguish dementia from persistent delirium and that diagnosis of dementia is generally janet in outpt setting by PCP or geripsych. Spent a substantial amount of time discussing the progressively debilitating nature of dementia. Explained that dementia is incurable and irreversible, and can include progressive/worsening memory loss, confusion, language difficulties/lack of comprehension skills/loss of verbal skills eventually, mood changes, impaired judgment, trouble with motor skills/coordination/balance issues, visual and spatial problems, hallucinations, and personality changes. The rate of progression in mixed dementia can vary widely from person to person. Factors such as the types of dementia involved, overall health, and genetics can influence the speed of progression. Some individuals experience a more gradual decline, while others may progress more rapidly through the stages. We discussed and differentiated dementia from delirium and helped family understand that they can co-exist. I reviewed Dementia is a terminal illness. Aggressive medical treatment for patients with advanced dementia is often inappropriate for medical reasons, has a low rate of success, and can have negative outcomes that hasten functional decline and . ([place] [employer] Ethics Committee and Clinical Practice and Models of Care Committee. J Am Geriatr Soc. 2014 Aug;62(8):1590-3 and Miguel SL, Kyaw JM, Giordano SC, Jaylon V. A national study of the location of for older persons with dementia. J Am Geriatr Soc 2005; 53(2):299-305.). Helped them understand differences between dementia and delirium. Discussed typical progression of dementia and how it may be staged. Stage 1: Normal Functioning: In the early stage, individuals show no signs of dementia, and their cognitive function is normal Stage 2: Very Mild Cognitive Decline: Minor memory lapses and forgetfulness may occur but are often attributed to normal aging Stage 3: Mild Cognitive Decline: Early signs of dementia become more noticeable, such as memory problems and difficulty finding words Stage 4: Moderate Cognitive Decline: Memory loss becomes more pronounced, and individuals may struggle with tasks like managing finances and planning Stage 5: Moderately Severe Cognitive Decline: Daily functioning becomes challenging, and individuals may require assistance with tasks like dressing and bathing Stage 6: Severe Cognitive Decline: In this stage, individuals need substantial help with daily activities, and communication becomes increasingly difficult Stage 7: Very Severe Cognitive Decline: In the final stage, individuals may lose the ability to communicate, walk, and perform basic tasks. They require xjrxs-nqs-rccul care. Older adults with dementia frequently receive acute care in their last year of life although Hospice care was more common for home/DETENTION residents. Overall time in hospice remains short due to the underutilization of the hospice benefit for terminal dementia (Rush MM, Sherlyn JM, Laura KM, Gutierrez DE, Gilma PY. Dementia Care in the Last Year of Life: Experiences in a Community Practice and in Penitentiary Facilities. J Palliat Care. 2022;38(2):135-142. doi:10.1177/[id number]) Home Hospice is a valuable option for terminal dementia who desire to have peaceful EOL at home. Home hospice care for advanced dementia can improve symptom management and caregiver satisfaction, while decreasing caregiver burden, preventing hospitalizations and discontinuing unnecessary medication (Corby SA, Tiffany R, Malena G, et al. Home hospice for older people with advanced dementia: a pilot boat captain project published correction appears in Isr J Health Policy Res. 2019 Feb 02;8(1):56. Isr J Health Policy Res. 2019;8(1):42. Published 2018December 08. doi:10.1186/[email or web address]-l We will sign off on this patient as goals of care are clearly established for DNR/DNI but continue all other life prolonging therapies Thank you for including Palliative Care in the management of this patient. Please call with any questions or concerns regarding this consultation. I spent 70 minutes overall addressing this case: 5 in medical data review/discussion with referring provider(s) and/or preparation for the visit 50 in direct interaction with the patient's sister and nephew 45 Advance Care Planning/Goals of Care discussions as detailed above in note (must be >16min) 10 in subsequent review and synthesis of assessment and plan 5 in communicating with other providers regarding the patient's case: attbeverly, BSRN
[2024-10-22] MEDS: FAMOTIDINE 40 MG TABLET PO ONE (22:46)
[2024-10-22] MEDS: ARIPiprazole 2 MG TAB PO SCH (22:46)
[2024-10-23 07:26] VITALS: BP 136/69; TEMP 97.5
[2024-10-23 07:43] VITALS: PULSE 69; RESP 17; O2SAT 94
[2024-10-23] MEDS: POLYETHYLENE (MIRALAX) 17 GM PACK PO SCH (09:51)
[2024-10-23] MEDS: MAGNESIUM HYDROXIDE SUSP 30 ML UDC PO ONE (10:02)
[2024-10-23] MEDS: PANTOprazole 40 MG TAB PO SCH (10:05)
[2024-10-23] MEDS: SENNA 8.6 MG TAB PO SCH (10:05)
--- NOTE | 2024-10-23 12:11 | Discharge Summary ---
Discharge Summary Date of Service October 23, 2024 Principal Dx & Hospital Course #1 = Principal Diagnosis (1) COPD (chronic obstructive pulmonary disease): (2) Lumbar radiculopathy: (3) Compression fracture of L1 vertebra: (4) Stenosis of right internal carotid artery: (5) Dyslipidemia: (6) Cyst of left kidney: Plan 84-year-old male resident of [facility] [place] [facility], with past medical history of cognitive impairment, hypertension, chronic diastolic congestive heart failure with preserved ejection fraction of 55%, L1 compression fracture with lumbar degenerative disease L4/L5, chronic COPD with chronic res piratory failure on 2 L of oxygen at baseline, left complex renal cyst around 6 cm who presents to the ED with an episode of unresponsiveness #Acute metabolic encephalopathy #Delirium with visual hallucinations Patient currently is at his baseline mentation MRI of the brain did not show any evidence of CVA Ammonia levels are normal TSH is 1.752 B12 is 1020 Chest x-ray portable film showed mild vascular congestion Patient had LP done in ED which so far has been unremarkable Patient does have some leukocytosis, urinalysis did not show any evidence of UTI Patient has finished 3 days of IV ceftriaxone and all cultures have been negative White count has normalized Avoid opiates and benzodiazepines Psychiatry saw the patient and recommended Abilify 2 mg nightly: This was discussed with patient and his Sister Emily on the phone: Risk, benefits and side effects discussed including risk of stroke and in the elderly. Patient's Sister Emily is his power of real estate associate attorney and is in agreement with psychiatry recommendations to start Abilify. Patient was given Abilify last night and reports that he slept well without any hallucinations and felt much better this morning. Patient will benefit for outpatient follow-up with neurology for neurocognitive testing to assess for dementia #Right internal carotid artery stenosis Finding on CTA head and neck Dr. Collins spoke with patient's sister and at this point sister would not like to go out with any surgical procedures and also sister states that patient has a living will that states that he does not elect to have any surgical procedures. As per vascular surgery, they will reconsider him for possible TCAR if the patient and sister agreeable. Will have patient follow-up with Dr. Collins as outpatient after discussion with sister who wants to follow-up to discuss this further with vascular surgeon as outpatient #Chronic hypoxic respiratory failure secondary to chronic COPD Patient is on 2 L of oxygen at baseline Continue nebulizers He is currently not in any exacerbation Outpatient follow-up with PCP #Essential hypertension #Hyperlipidemia #Chronic diastolic congestive heart failure with preserved ejection fraction Monitor orthostatic vital signs at SNF Resume Lasix at lower dose of 20 mg daily with potassium replacement Labs to be done at SNF and medications to be addressed by SNF physician based on repeat lab work on 10/26/2024 Continue aspirin and statin #Urinary retention #Left complex cyst #History of renal cell carcinoma requiring surgery in [place] 5 years ago Incidental finding of complex left renal cyst in ED on 10/09/2024 Urinary retention is new this week and [place] [facility] Patient was advised to follow-up with urology: Dr. Craig as outpatient #L1 compression fracture PT saw the patient and recommended SNF with PT on discharge Patient was advised to follow-up with orthospine specialist Dr. Kyree Gamez as outpatient Analgesia with Tylenol scheduled and Lidoderm patch Avoid all opiates as it causes patient to get very confused and agitated As per patient sister, even tramadol causes confusion and to avoid all opiates including tramadol CODE STATUS: DNR/DNI Patient seen and examined today. He has had a bowel movement today. He feels well. He denies any chest pain or shortness of breath. He had a bowel movement and is tolerating oral diet without any issues. He denies any dizziness or lightheadedness. He is stable for discharge back to SNF with physical therapy as recommended by PT evaluation. I have gone over the discharge care plan, medications and follow-up with the patient in great detail and also left a message for his Sister Emily ([phone]) to update her on the discharge care plan. This discharge took greater than 30 minutes to coordinate Admission HPI Per Admitting Provider Mr. 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 HPI is limited due to patient mentation and no records available for my review beyond EMS notes and ER provider sign out. Did speak with Nicole PERSON that assisted with the past few days of events. Patient was seen in the ED on 09 October for back pain that improved with enemas as he does have a history of constipation. Incidental finding of renal cyst and Urology did not feel it was an active bleed. Sister jin guzman history of renal cancer requiring surgery in the past. He was seen on 10 October for R upper thigh pain. He was found at that time to have the L1 compression fracture. It appears he was taking Oxy but this was D/Cd on the due to hallucinations and altered mentation. A drug holiday was attempted and staff noted his was confused but a bit better on Saturday. At baseline he is alert and oriented x 3 and ambulatory without focal deficits. On Saturday he was agitated and throwing things. No medication was given that could have increased confusion or agitation. There was question of possible Seroquel but this was an old medication that has been D/Cd since April 2024. Naloxone was given in ED with no change in mentation. Patient is very dry on examination. He did develop urinary retention this past week and Andrade was placed. He will open his L eye to verbal cues and was shaking his head yes/no to some questions but cannot truly gauge if he was comprehending. Discharge Exam General: No acute distress Psych: Awake and alert, oriented to place and person HEENT: Anicteric sclera, moist oral mucosa CVS: Regular rate and rhythm Lungs: Bilateral air entry, no wheezing noted Abdomen: Soft, nontender, no rebound, no guarding Ext: No lower extremity edema, no calf tenderness Discharge Plan Discharge Items Patient Disposition: Transfer Halfway Fac Reason For Visit: ALTERED MENTAL STATUS Discharge Diagnosis: #Delirium with visual hallucinations #Right internal carotid artery stenosis #Chronic hypoxic respiratory failure secondary to chronic COPD #Essential hypertension #Hyperlipidemia #Urinary retention #Left complex cyst #History of renal cell carcinoma requiring surgery in [place] 5 years ago #L1 compression fracture Condition on Discharge: Fair Activity: As commented below Activity Comment: as tolerated with nursing assistance and walker Non-emergency contact: Primary Care Provider Call non-emergency contact if: you have any medication questions, your symptoms worsen, your pain is not controlled and you have a fever Follow-up/Referrals: Uche Craig MD [Physician] - [place] [Primary Care Provider] - Kyree Gamez MD [Surgeon] - Jamil Collins MD [Physician] - Diet: Heart Healthy Addtl Attending Provider Instructions: DISCHARGE INSTRUCTION TO PATIENT/FAMILY/SNF: Follow-up with your primary care provider within 1 week regarding: Posthospital discharge, medication review, medication refills and follow-up on all your medical problems Please take all your discharge medications, discharge information and discharge instructions to all your doctors appointments. Avoid all NSAIDs including ibuprofen, Motrin, Advil, Aleve, naproxen, meloxicam, Toradol, diclofenac Avoid all opiates since they make patient confused Out of bed to chair for all meals, no meals in bed. Please sit upright for every meal Nursing assistance with ambulation at all times as patient is high fall risk Daily weights. If patient's weight goes up by 2 pounds in 24 hours or if he is short of breath with increasing leg edema, please give an extra dose of Lasix 20 mg and call PCP/SNF physician for further recommendations Daily orthostatic vital signs and please hold furosemide/Lasix if standing systolic blood pressures less than 110 after checking orthostatic vital signs. Please ensure the patient has follow-up with urologist Dr. Craig in 1 to 2 weeks time regarding left renal lesion/cyst given history of renal cancer and ur inary retention requiring Andrade catheter Please ensure the patient has follow-up with orthospine surgeon Dr. Gamez in 1 to 2 weeks time re: L1 compression fracture Please ensure patient has follow-up with vascular surgeon Dr. Collins regarding right ICA stenosis in 1 to 2 weeks time Patient needs referral to outpatient neurology for neurocognitive testing in 1 to 2 weeks time to be done through PCP at SNF Labs at SNF on 10/26/2024: CBC, CMP, MG, VITAMIN D Pending Studies at Discharge: No Stand-Alone Forms: My [facility] [employer] Skilled Items Patient informed of condition?: Yes DNR: Yes Discharge Level of Care: Skilled Communicable Disease: No Discharge Prognosis: Stable Lines: None Urinary Catheter: Yes Medications and DC Order Prescriptions: New sennosides [Senokot] 8.6 mg Tablet 17.2 mg PO HS Qty: 1 0RF lidocaine 5 % Adhesive Patch,Medicated 1 patch transdermal HS Qty: 1 0RF budesonide 0.5 mg/2 mL Suspension For Nebulization 0.5 mg NEB BIDR Qty: 1 0RF aripiprazole 2 mg Tablet 2 mg PO QPM Qty: 1 0RF acetaminophen [Tylenol Extra Strength] 500 mg Tablet 1,000 mg PO TID PRN (Reason: pain) Qty: 1 0RF Continued latanoprost 0.005 % Drops 1 drp OPHTHALMIC (EYE) PM Rx Instructions: right eye atorvastatin 80 mg tablet 80 mg PO HS tamsulosin 0.4 mg Capsule 0.4 mg PO HS Fleet Enema 19-7 gram/118 mL Enema 118 ml DE DAILY PRN (Reason: Constipation) calcium carbonate 500 mg calcium (1,250 mg) Tablet,Chewable 500 mg PO Q6H PRN (Reason: GERD) cholecalciferol (vitamin D3) 50 mcg (2,000 unit) Tablet 50 mcg PO QAM Biotene Moisturizing Mouth [place],Non-Aerosol 1 spray mucous membrane Q2H PRN (Reason: Dry Mouth) Milk of Magnesia 30 ml PO DAILY PRN (Reason: Constipation) Rx Instructions: after no BM for 3 days ipratropium-albuterol 0.5 mg-3 mg(2.5 mg base)/3 mL solution for nebulization 3 ml INHALATION Q2H PRN (Reason: SOB/Wheezing) polyethylene glycol 3350 [Miralax] 17 gram Powder In Packet 17 g PO QAM cyanocobalamin (vitamin B-12) 1,000 mcg tablet 1,000 mcg PO QAM bisacodyl [Dulcolax (bisacodyl)] 10 mg Suppository 10 mg DE DAILY PRN (Reason: Constipation) Rx Instructions: Give on day 3, 3-11 shift if no bowel movement after milk of magnesia aspirin 81 mg tablet,chewable 81 mg PO QAM ondansetron 4 mg tablet,disintegrating 4 mg PO Q6H PRN (Reason: Nausea And Vomiting) arformoterol 15 mcg/2 mL solution for nebulization 2 ml INHALATION BID revefenacin 175 mcg/3 mL Solution For Nebulization 175 mcg INHALATION QAM Changed furosemide 40 mg tablet 20 mg PO DAILY Qty: 0 0RF Rx Instructions: HOLD FOR STANDING SBP <110 potassium chloride 20 mEq tablet,ER particles/crystals 20 meq PO DAILY Qty: 0 0RF Discontinued acetaminophen [Tylenol] 325 mg Tablet 650 mg PO Q8H MDD 3g/24hr PRN (Reason: Pain/fever) Discharge Orders: Discharge Order- CHF (Routine); Ordered 10/23/24 Ordered By: Damion Oliveira Admission Data Admit Date/Time: 10/19/24 14:27 Attending Provider: Damion Oliveira Admit Provider: Archie Lopez [facility]iders: [facility]; Archie Lopez; Oksana Chaidez; Piyush Tamayo; Chayito Khan; Princess Foreman; Suraj Brooks; Richy Kumar Hospital Stay Data Consultations 10/19/24 13:35 ED Decision to Admit Stat 10/20/24 22:34 Consult Palliative Care Routine 10/21/24 18:40 Consult Psychiatry Routine Diagnostic Imagining Performed 10/19/24 10:32 CT head/brain wo con Stat 10/19/24 13:32 IR lumbar puncture diagnostic Stat 10/19/24 16:50 MRI Brain [MR brain wo/w con] Routine 10/19/24 17:07 CT angio head w con Stat CT angio neck with con Stat Chest X-Ray 10/19/24 10:32 XR chest 1V portable CLINICAL HISTORY: weakness COMPARISON STUDY: None FINDINGS: There is moderate cardiomegaly with mild pulmonary vascular congestion. There is opacity at the left base with partial obscuration of the left hemidiaphragm. No pneumothorax. IMPRESSION: 1. Mild CHF. 2. Left lung base opacity could represent atelectasis, early pneumonia, or small left pleural effusion. ACT 112: Negative or not required by law. Electronically signed by: iPyush Kessler M.D. 10/19/2024 11:[address] 10/19/24 10:32 CT head/brain wo con CLINICAL HISTORY: AMS. TECHNIQUE: Multiple axial CT images of the head were obtained without contrast. A dose lowering technique was utilized adhering to the principles of ALARA. CT DOSE: 1796.57 mGy.cm COMPARISON: None FINDINGS: There is motion artifact despite multiple acquisitions. No intracranial hemorrhage seen. No mass effect, midline shift, or hydrocephalus. No skull fracture seen. Visualized paranasal sinuses are clear. There is complete opacification of the mastoid air cells bilaterally IMPRESSION: 1. No acute intracranial findings. 2. Findings consistent with bilateral mastoiditis. ACT 112: Negative or not required by law. The above report was generated using voice recognition software. It may contain grammatical, syntax or spelling errors. Electronically signed by: Piyush Kessler M.D. 10/19/2024 11:40 AM Lumbar Puncture 10/19/24 13:32 LUMBAR PUNCTURE UNDER FLUOROSCOPY CLINICAL HISTORY: Altered mental status; mastoiditis PROCEDURE: Procedure and risks were explained. Informed consent was obtained over the phone from the power of real estate associate attorney. A final timeout was completed. The patient was placed prone on the fluoroscopic exam table. The lower lumbar region was prepped and draped in sterile fashion. 1% lidocaine was utilized for skin anesthesia. Utilizing fluoroscopic guidance, a 22-gauge spinal needle was advanced into the intrathecal space at the L2-3 disc space level. Fluoroscopic spot images were obtained. Approximately 3 mL of clear CSF fluid was removed and sent to lab for analysis. The needle was readjusted to try to remove more CSF, but was unsuccessful and subsequently removed. The patient tolerated the procedure well. Vital signs will be monitored postprocedure. Fluoroscopy time 14 seconds. Study dosed 32.15 mGy. IMPRESSION: Small-volume lumbar puncture as above. The referring emergency department physician was notified. Performed, dictated, and signed by Bebeto Martinez PA-C; to be co-signed by Dr. Piyush Kessler. Electronically signed by: Piyush Kessler M.D. 10/19/2024 4:10 PM Brain MRI 10/19/24 16:50 EXAM: MR brain wo/w con CLINICAL HISTORY: AMS Rule out infarct TECHNIQUE: Different pulse sequences were performed in different planes for the brain without and with GD-DTPA injection. 10.5 mL of Gadavist was injected intravenously without complications. Images were sent through PACs for interpretation. COMPARISON: None. FINDINGS: No hyperacute or acute infarctions could be detected. Altered deep white matter signals are seen at the forceps minor, forceps major, periventricular, and centrum semiovale regions. These exhibit bright signals on T2 and FLAIR WI and intermediate signals on T1 WI. Findings suggest consequences of small vessel disease, e.g., hypertensive and/or diabetic vasculopathy. Age-appropriate degenerative involutional changes are denoted by symmetrical dilatation of the ventricular system, prominent cortical sulci, sylvian fissures, cerebellar, vermian folia, and basal cisterns. Normal MRI appearance of the cerebellar parenchymal signals. Normal MRI appearance of the central banks matter aggregates. Normal size and configuration of the cerebral ventricles. Normal MRI appearance of different anatomical parts of the brain stem, namely the midbrain, brayan, and medulla oblongata. Normal MRI appearance of the petrous temporal bones, brainstem, vestibule cochlear nerves, and cerebellopontine angles with no definite masses. No shift of midline structures. No intracerebral or extra-axial hematomas or masses. Normal MRI appearance of orbital structures, both globes, optic nerves, optic chiasm, optic tracts and radiations. The scanned paranasal sinuses are unremarkable. Altered signals at the middle ear cavities and mastoid air cells suggest bilateral otomastoiditis. Clinical and CT correlation is recommended. Elongation of the anterior-posterior dimensions of the left globe with posterior staphylomas consistent with high developmental myopia. Right cataract surgery. Hypertrophic nasal turbinates. The bony nasal septum shows a deviation to the right side. IMPRESSION: 1. No hyperacute or acute infarctions. 2. No intracerebral or extra axial hematoma. 3. Imaging features consistent with the consequences of small vessel disease, e.g., hypertensive and/or diabetic vasculopathy. ([place], grade 2). 4. Age-appropriate degenerative involutional changes. 5. Altered signals at the middle ear cavities and mastoid air cells suggest bilateral otomastoiditis. Clinical and CT correlation is recommended. Electronically signed by Riaz Townsend 10-19-2024 8:21 PM Head CTA 10/19/24 17:07 INDICATION: Left upper extremity weakness TECHNIQUE: Axial CT images of the head and neck were obtained following IV contrast administration. Coronal and sagittal reformations were performed and reviewed. COMPARISON: None available at the time of dictation. FINDINGS: CTA: NECK: Aortic arch: Normal caliber without aneurysm, dissection, or stenosis. Vertebral arteries: Normal caliber without dissection or stenosis. Right carotid artery: Calcified and noncalcified plaque formation of the carotid bulb and proximal internal carotid artery. 80-90% stenosis of the proximal right internal carotid artery. Left carotid artery: Calcified and noncalcified plaque present in the carotid bulb and proximal internal carotid artery. Less than 50% stenosis of the internal carotid artery. Head: Intracranial internal carotid arteries: Normal caliber without significant stenosis or aneurysm. Middle cerebral arteries: Normal caliber without significant stenosis or aneurysm. Anterior cerebral arteries: Normal caliber without significant stenosis or aneurysm. Basilar artery: Normal caliber without significant stenosis or aneurysm. Posterior cerebral arteries: Normal caliber without significant stenosis or aneurysm. IMPRESSION: 1. 80-90% stenosis of the proximal right internal carotid artery. No significant stenosis in the left internal carotid artery. 2. No large vessel occlusion/stenosis or aneurysm in the head. Electronically signed by Cricket Panchal 10-19-2024 6:27 PM Neck CTA 10/19/24 17:07 INDICATION: Left upper extremity weakness TECHNIQUE: Axial CT images of the head and neck were obtained following IV contrast administration. Coronal and sagittal reformations were performed and reviewed. COMPARISON: None available at the time of dictation. FINDINGS: CTA: NECK: Aortic arch: Normal caliber without aneurysm, dissection, or stenosis. Vertebral arteries: Normal caliber without dissection or stenosis. Right carotid artery: Calcified and noncalcified plaque formation of the carotid bulb and proximal internal carotid artery. 80-90% stenosis of the proximal right internal carotid artery. Left carotid artery: Calcified and noncalcified plaque present in the carotid bulb and proximal internal carotid artery. Less than 50% stenosis of the internal carotid artery. Head: Intracranial internal carotid arteries: Normal caliber without significant stenosis or aneurysm. Middle cerebral arteries: Normal caliber without significant stenosis or aneurysm. Anterior cerebral arteries: Normal caliber without significant stenosis or aneurysm. Basilar artery: Normal caliber without significant stenosis or aneurysm. Posterior cerebral arteries: Normal caliber without significant stenosis or aneurysm. IMPRESSION: 1. 80-90% stenosis of the proximal right internal carotid artery. No significant stenosis in the left internal carotid artery. 2. No large vessel occlusion/stenosis or aneurysm in the head. Electronically signed by Cricket Panchal 10-19-2024 6:27 PM Laboratory Results - last 72 hr 10/20/24 10/21/24 06:06 07:49 WBC 8.63 RBC 3.80 L Hgb 12.2 L Hct 38.5 L MCV 101.3 H MCH 32.1 MCHC 31.7 L RDW Std Deviation 50.2 H RDW Coeff of Marcia 13.4 Plt Count 218 MPV 10.7 Sodium 142 Potassium 3.8 Chloride 107 Carbon Dioxide 31 Anion Gap 4 BUN 16 Creatinine 0.90 Est Cr Clr Drug Dosing 76.3 eGFR 83.18 BUN/Creatinine Ratio 17.8 Glucose 90 Calcium 8.9 Magnesium 2.0 Vitamin B12 1020 H Pending Results Patient Have Any Pending Studies at Discharge: No Discharge Instructions Given to Patient (Per Discharging Provider) DISCHARGE INSTRUCTION TO PATIENT/FAMILY/SNF: Follow-up with your primary care provider within 1 week regarding: Posthospital discharge, medication review, medication refills and follow-up on all your medical problems Please take all your discharge medications, discharge information and discharge instructions to all your doctors appointments. Avoid all NSAIDs including ibuprofen, Motrin, Advil, Aleve, naproxen, meloxicam, Toradol, diclofenac Avoid all opiates since they make patient confused Out of bed to chair for all meals, no meals in bed. Please sit upright for every meal Nursing assistance with ambulation at all times as patient is high fall risk Daily weights. If patient's weight goes up by 2 pounds in 24 hours or if he is short of breath with increasing leg edema, please give an extra dose of Lasix 20 mg and call PCP/SNF physician for further recommendations Daily orthostatic vital signs and please hold furosemide/Lasix if standing systolic blood pressures less than 110 after checking orthostatic vital signs. Please ensure the patient has follow-up with urologist Dr. Craig in 1 to 2 weeks time regarding left renal lesion/cyst given history of renal cancer and urinary retention requiring Andrade catheter Please ensure the patient has follow-up with orthospine surgeon Dr. Gamez in 1 to 2 weeks time re: L1 compression fracture Please ensure patient has follow-up with vascular surgeon Dr. Collins regarding right ICA stenosis in 1 to 2 weeks time Patient needs referral to outpatient neurology for neurocognitive testing in 1 to 2 weeks time to be done through PCP at SNF Labs at [facility] on 10/26/2024: CBC, CMP, MG, VITAMIN D Total Time Total Time Spent Total Time Spent (In Minutes): 40 Coding Level of Care Code 58274 INP/OBS DISCH >30 MIN Diagnoses COPD (chronic obstructive pulmonary disease) J44.9 Lumbar radiculopathy M54.16 Compression fracture of L1 vertebra S32.010A Encounter type: initial encounter Stenosis of right internal carotid artery I65.21 Dyslipidemia E78.5 Cyst of left kidney N28.1
--- NOTE | 2024-10-26 14:39 | Coding Query ---
unknown CODING QUERY To promote full compliance with coding requirements relating to patient care, provider participation is requested in all cases of mechanical tech uncertainty. Please assist us with the question(s) below: Coding Question(s): Pt [facility] with [facility] status from the [facility]. Discharge Summary stated metabolic encephalopathy. Psyche was consulted & Palliative care. Please document, if known or suspected, the etiology of the metabolic encephalopathy. Thanks for your help! Yobany Heath [facility] Physician's Response(s): Principal Diagnosis: "that condition established after study, to be chiefly responsible for occasioning the admission of the patient to the hospital for care." Co-Existing Principal Diagnosis: "when two or more diagnoses equally meet the criteria for principal diagnosis as determined by the circumstances of admission, diagnostic work up, and/or therapy provided, and the Alphabetic Index, Tabular List, or another coding guideline does not provide sequencing direction, any one of the diagnoses may be sequenced first." "When the physician has documented what appears to be a current diagnosis in the body of the record, but has not included the diagnosis in the final diagnostic statement, the physician should be asked whether the diagnosis should be added." (Source [facility] 2 QTR90. p3-4) ALISA
== END 2024-10-23 13:16 | DRG 71 ==
LOC: ED 10:21 → SUATTDRO 14:27 → 4W 14:27 → 3N 10-21 16:56